=== PATIENT | female | born 1945 | race Two or more races ===

== ENCOUNTER → 2016-12-25 | Outpatient (CLI) | payer OTHER ==
[~2016-12-25] MED LIST: CHOL4POW4 PO; ESTR0.753 PO; GLIM2TAB33 PO; INSLANTI SC; LEVO100T8 PO; METF-312 PO; OXYB5TAB62 PO; RAMI10CA38 OR; TRIA37.561 PO
[2016-12-25 11:48] LABS: Basophils # (auto) 0 uL; Basophils % (auto) 0.3 % (0.0-2.0); Eosinophils # (auto) 0.2 uL; Eosinophils % (auto) 2.2 % (0.0-7.0); Hematocrit 43.1 % (36.0-46.0); Hemoglobin 14.2 g/dL (12.2-16.2); Lymphocytes # (auto) 2.2 uL; Lymphocytes % (auto) 28.8 % (10.0-50.0); Mean Corpuscular Hemoglobin 30.8 pg (28.0-32.0); Mean Corpuscular Hgb Conc. 32.9 g/dL (32.0-36.0); Mean Corpuscular Volume 93.7 fL (80.0-100.0); Mean Platelet Volume 7.9 fL (7.4-10.4); Monocytes # (auto) 0.7 uL; Monocytes % (auto) 9.7 % (0.0-12.0); Neutrophils # (auto) 4.5 uL; Platelet Count (auto) 301 10^3/uL (140-450); Red Cell Distribution Width 15.4 % (11.6-16.0); White Blood Cell 7.6 10^3/uL (4.4-10.8)
[2016-12-25 11:51] LABS: Urine Bilirubin Negative (Negative); Urine Blood Negative /uL (Negative); Urine Color Yellow (Yellow); Urine Glucose Normal (Normal); Urine Ketone Negative (Negative); Urine Nitrite Negative (Negative); Urine RBC <1 /hpf (0 - 4); Urine Urobilinogen Normal (Negative)
[2016-12-25 12:04] LABS: Albumin 3.9 g/dL (3.4-5.0); BUN/Creatinine Ratio 30.4; Calcium 9.6 mg/dL (8.5-10.1); Phosphorus 4.1 mg/dL (2.5-4.90); Potassium 4.2 mmol/L (3.5-5.1); Uric Acid 7.5 mg/dL (2.6-6.0)
[2016-12-25 12:08] LABS: Urine Protein/Creatinine Ratio 0.64
== END | disposition home or self-care (01) ==
LOC: LAB 11:17
PROVIDERS: ATTEND Internal Medicine
DX: N18.3 Chronic kidney disease, stage 3 (moderate) (principal); D63.1 Anemia in chronic kidney disease; E21.3 Hyperparathyroidism, unspecified; E78.5 Hyperlipidemia, unspecified; M10.9 Gout, unspecified; E55.9 Vitamin D deficiency, unspecified; E13.22 Other specified diabetes mellitus with diabetic chronic kidney disease
CPT/HCPCS: 36415; 80069; 81001; 82306; 82570; 83036; 83970; 84156; 84550; 85025

== ENCOUNTER → 2017-02-28 | Outpatient (CLI) | payer OTHER ==
[2017-02-28 14:04] LABS: Basophils # (auto) 0 uL; Basophils % (auto) 0.4 % (0.0-2.0); Eosinophils # (auto) 0.4 uL; Eosinophils % (auto) 4.8 % (0.0-7.0); Lymphocytes # (auto) 2.5 uL; Mean Corpuscular Hemoglobin 31.4 pg (28.0-32.0); Mean Corpuscular Hgb Conc. 33.3 g/dL (32.0-36.0); Mean Corpuscular Volume 94.2 fL (80.0-100.0); Mean Platelet Volume 7.5 fL (7.4-10.4); Monocytes # (auto) 0.7 uL; Monocytes % (auto) 8.2 % (0.0-12.0); Neutrophils # (auto) 4.9 uL; Neutrophils % (auto) 57.6 % (37.0-80.0); Platelet Count (auto) 325 10^3/uL (140-450); White Blood Cell 8.5 10^3/uL (4.4-10.8)
[2017-02-28 14:27] LABS: Albumin 3.8 g/dL (3.4-5.0); BUN/Creatinine Ratio 29.5; Bilirubin, Total 0.3 mg/dL (0.2-1.0); Potassium 3.9 mmol/L (3.5-5.1); Total Protein 8.4 g/dL (6.4-8.2)
== END | disposition home or self-care (01) ==
LOC: LAB 13:50
PROVIDERS: ATTEND Internal Medicine
DX: C43.9 Malignant melanoma of skin, unspecified (principal)
CPT/HCPCS: 36415; 80053; 83615; 85025

== ENCOUNTER → 2017-05-07 | Outpatient (CLI) | payer OTHER ==
[~2017-05-07] MED LIST changes: -METF-312 PO; +METF-370 PO
[2017-05-07 07:16] LABS: Basophils # (auto) 0 uL; Basophils % (auto) 0.3 % (0.0-2.0); CONDITION Y; Eosinophils # (auto) 0.2 uL; Eosinophils % (auto) 3.1 % (0.0-7.0); Hematocrit 42.4 % (36.0-46.0); Hemoglobin 14.2 g/dL (12.2-16.2); Lymphocytes # (auto) 2.1 uL; Lymphocytes % (auto) 28.3 % (10.0-50.0); Mean Corpuscular Hemoglobin 31.2 pg (28.0-32.0); Mean Corpuscular Hgb Conc. 33.4 g/dL (32.0-36.0); Mean Corpuscular Volume 93.4 fL (80.0-100.0); Mean Platelet Volume 7.6 fL (7.4-10.4); Monocytes # (auto) 0.6 uL; Monocytes % (auto) 8.5 % (0.0-12.0); Neutrophils # (auto) 4.5 uL; Neutrophils % (auto) 59.8 % (37.0-80.0); Platelet Count (auto) 343 10^3/uL (140-450); White Blood Cell 7.6 10^3/uL (4.4-10.8)
[2017-05-07 07:40] LABS: Albumin 3.8 g/dL (3.4-5.0); BUN/Creatinine Ratio 25.7; Bilirubin, Total 0.3 mg/dL (0.2-1.0); Calcium 9.5 mg/dL (8.5-10.1); Total Protein 8.7 g/dL (6.4-8.2)
== END | disposition home or self-care (01) ==
LOC: LAB 06:24
PROVIDERS: ATTEND Internal Medicine
DX: E11.9 Type 2 diabetes mellitus without complications (principal); E78.00 Pure hypercholesterolemia, unspecified
CPT/HCPCS: 36415; 80053; 80061; 83036; 84443; 85025

== ENCOUNTER → 2017-07-11 | Outpatient (CLI) | payer OTHER ==
[2017-07-11 14:24] LABS: Basophils # (auto) 0.1 uL; Basophils % (auto) 0.7 % (0.0-2.0); Eosinophils # (auto) 0.1 uL; Eosinophils % (auto) 1.6 % (0.0-7.0); Hemoglobin 14.1 g/dL (12.2-16.2); Lymphocytes # (auto) 2.2 uL; Lymphocytes % (auto) 27.3 % (10.0-50.0); Mean Corpuscular Hemoglobin 31.2 pg (28.0-32.0); Mean Corpuscular Hgb Conc. 33.5 g/dL (32.0-36.0); Mean Platelet Volume 7.4 fL (6.9-10.8); Monocytes # (auto) 0.8 uL; Monocytes % (auto) 10.1 % (0.0-12.0); Neutrophils # (auto) 4.9 uL; Neutrophils % (auto) 60.3 % (37.0-80.0); Platelet Count (auto) 296 10^3/uL (140-450); Red Cell Distribution Width 15.1 % (11.8-14.3); White Blood Cell 8.1 10^3/uL (4.4-10.8)
[2017-07-11 14:28] LABS: Urine Bilirubin Negative (Negative); Urine Blood Negative /uL (Negative); Urine Color Yellow (Yellow); Urine Glucose Normal (Normal); Urine Ketone Negative (Negative); Urine Nitrite POSITIVE (Negative); Urine RBC 1 /hpf (0 - 4); Urine Squamous Epithelial Cell FEW /hpf (<5); Urine Urobilinogen Normal (Negative)
[2017-07-11 14:52] LABS: Albumin 3.8 g/dL (3.4-5.0); BUN/Creatinine Ratio 28.6; Calcium 9.4 mg/dL (8.5-10.1); Phosphorus 3.8 mg/dL (2.5-4.90); Potassium 3.8 mmol/L (3.5-5.1); Uric Acid 8.4 mg/dL (2.6-6.0)
[2017-07-11 14:54] LABS: Urine Protein/Creatinine Ratio 0.27
== END | disposition home or self-care (01) ==
LOC: LAB 13:53
PROVIDERS: ATTEND Internal Medicine Cardiovascular Disease
DX: I48.91 Unspecified atrial fibrillation (principal); I11.9 Hypertensive heart disease without heart failure; Z79.899 Other long term (current) drug therapy
CPT/HCPCS: 36415; 80048; 80069; 81001; 82306; 82570; 83970; 84156; 84550; 85025

== ENCOUNTER → 2017-11-07 | Outpatient (CLI) | payer OTHER ==
[2017-11-07 14:44] LABS: BUN/Creatinine Ratio 27.2; Uric Acid 7.7 mg/dL (2.6-6.0)
== END | disposition home or self-care (01) ==
LOC: LAB 13:48
PROVIDERS: ATTEND Internal Medicine Cardiovascular Disease
DX: I10 Essential (primary) hypertension (principal); E10.9 Type 1 diabetes mellitus without complications; E03.9 Hypothyroidism, unspecified; I48.91 Unspecified atrial fibrillation
CPT/HCPCS: 36415; 80048; 83880; 84550

== ENCOUNTER → 2018-01-11 | Outpatient (CLI) | payer OTHER ==
[2018-01-11 07:29] LABS: Basophils # (auto) 0 uL; Basophils % (auto) 0.7 % (0.0-2.0); Eosinophils # (auto) 0.2 uL; Hematocrit 38.8 % (36.0-46.0); Hemoglobin 12.1 g/dL (12.2-16.2); Lymphocytes # (auto) 1.3 uL; Lymphocytes % (auto) 25.9 % (10.0-50.0); Mean Corpuscular Hemoglobin 27.8 pg (28.0-32.0); Mean Corpuscular Hgb Conc. 31.3 g/dL (32.0-36.0); Mean Corpuscular Volume 88.6 fL (80.0-100.0); Monocytes # (auto) 0.5 uL; Monocytes % (auto) 10.5 % (0.0-12.0); Neutrophils # (auto) 3.1 uL; Neutrophils % (auto) 59.9 % (37.0-80.0); Nucleated Red Blood Cells % 0.1 %; Platelet Count (auto) 310 10^3/uL (140-450); Red Blood Cells 4.37 10^6/uL (4.0-5.20); Red Cell Distribution Width 17.4 % (11.8-14.3); White Blood Cell 5.2 10^3/uL (4.4-10.8)
[2018-01-11 07:34] LABS: Urine Bacteria FEW /hpf (None Seen); Urine Blood Negative /uL (Negative); Urine Specific Gravity 1.012 (1.001-1.035); Urine WBC 10 /hpf (0 - 5)
[2018-01-11 08:18] LABS: Alanine Aminotransferase 12 U/L (13-56); Albumin 3.7 g/dL (3.4-5.0); Alkaline Phosphatase 66 U/L (45-117); Aspartate Aminotransferase 14 U/L (15-37); Bilirubin, Direct < 0.1 mg/dL (0-0.2); Bilirubin, Total 0.3 mg/dL (0.2-1.0); Cholesterol 160 mg/dL (< 200); HDL Cholesterol 42 mg/dL (40-59); LDL Cholesterol 101 mg/dL (< 100); Total Protein 8.5 g/dL (6.4-8.2); Triglycerides 168 mg/dL (< 150); Uric Acid 7.7 mg/dL (2.6-6.0)
[2018-01-11 08:27] LABS: Protein, Urine 39.6 mg/dL (0.0-11.9)
== END | disposition home or self-care (01) ==
LOC: LAB 07:05
PROVIDERS: ATTEND Internal Medicine
DX: I12.9 Hypertensive chronic kidney disease with stage 1 through stage 4 chronic kidney disease, or unspecified chronic kidney disease (principal); E10.22 Type 1 diabetes mellitus with diabetic chronic kidney disease; N18.3 Chronic kidney disease, stage 3 (moderate); D63.1 Anemia in chronic kidney disease; E21.3 Hyperparathyroidism, unspecified; E78.5 Hyperlipidemia, unspecified; M10.9 Gout, unspecified; R80.9 Proteinuria, unspecified; E55.9 Vitamin D deficiency, unspecified; E78.00 Pure hypercholesterolemia, unspecified; E03.9 Hypothyroidism, unspecified; Z79.899 Other long term (current) drug therapy
CPT/HCPCS: 36415; 80061; 80076; 81001; 82306; 82570; 83970; 84156; 84550; 85025

== ENCOUNTER → 2018-02-25 | Outpatient (CLI) | payer OTHER ==
[2018-02-25 11:47] LABS: BUN/Creatinine Ratio 24.5; Calcium 9.3 mg/dL (8.5-10.1); Potassium 4.5 mmol/L (3.5-5.1)
== END | disposition home or self-care (01) ==
LOC: LAB 10:18
PROVIDERS: ATTEND Urology
DX: C64.2 Malignant neoplasm of left kidney, except renal pelvis (principal); I12.9 Hypertensive chronic kidney disease with stage 1 through stage 4 chronic kidney disease, or unspecified chronic kidney disease; E11.22 Type 2 diabetes mellitus with diabetic chronic kidney disease; N18.3 Chronic kidney disease, stage 3 (moderate); E78.5 Hyperlipidemia, unspecified; E78.00 Pure hypercholesterolemia, unspecified; Z79.899 Other long term (current) drug therapy
CPT/HCPCS: 36415; 80048

== ENCOUNTER → 2018-03-19 | Outpatient (CLI) | payer OTHER | END | disposition home or self-care (01) | LOC: XYW 11:28 | PROVIDERS: ATTEND Internal Medicine Cardiovascular Disease | DX: I42.0 Dilated cardiomyopathy (principal); I13.0 Hypertensive heart and chronic kidney disease with heart failure and stage 1 through stage 4 chronic kidney disease, or unspecified chronic kidney disease; E11.22 Type 2 diabetes mellitus with diabetic chronic kidney disease; I50.22 Chronic systolic (congestive) heart failure; N18.3 Chronic kidney disease, stage 3 (moderate); E78.5 Hyperlipidemia, unspecified; E78.00 Pure hypercholesterolemia, unspecified; E03.9 Hypothyroidism, unspecified; Z79.899 Other long term (current) drug therapy | CPT/HCPCS: 93306 ==

== ENCOUNTER → 2018-03-22 | Outpatient (CLI) | payer OTHER ==
[2018-03-22 10:13] LABS: Basophils # (auto) 0 uL; Eosinophils # (auto) 0.1 uL; Hemoglobin 12.4 g/dL (12.2-16.2); Lymphocytes # (auto) 1.7 uL; Mean Corpuscular Hemoglobin 26.8 pg (28.0-32.0); Neutrophils # (auto) 2.7 uL; Neutrophils % (auto) 52.5 % (37.0-80.0)
[2018-03-22 10:14] LABS: Basophils % (auto) 0.7 % (0.0-2.0); Eosinophils % (auto) 2.7 % (0.0-7.0); Hematocrit 39.2 % (36.0-46.0); Lymphocytes % (auto) 33.6 % (10.0-50.0); Mean Corpuscular Hgb Conc. 31.7 g/dL (32.0-36.0); Mean Corpuscular Volume 84.6 fL (80.0-100.0); Monocytes # (auto) 0.5 uL; Monocytes % (auto) 10.5 % (0.0-12.0); Nucleated Red Blood Cells % 0.1 %; Platelet Count (auto) 264 10^3/uL (140-450); Red Blood Cells 4.63 10^6/uL (4.0-5.20); Red Cell Distribution Width 19.6 % (11.8-14.3); White Blood Cell 5.2 10^3/uL (4.4-10.8)
[2018-03-22 10:53] LABS: Albumin 3.8 g/dL (3.4-5.0); BUN/Creatinine Ratio 24.4; Bilirubin, Total 0.3 mg/dL (0.2-1.0); Potassium 4.6 mmol/L (3.5-5.1); Total Protein 8.4 g/dL (6.4-8.2)
== END | disposition home or self-care (01) ==
LOC: LAB 09:57
PROVIDERS: ATTEND Internal Medicine
DX: C64.2 Malignant neoplasm of left kidney, except renal pelvis (principal); E03.9 Hypothyroidism, unspecified; E78.5 Hyperlipidemia, unspecified; I12.9 Hypertensive chronic kidney disease with stage 1 through stage 4 chronic kidney disease, or unspecified chronic kidney disease; N18.3 Chronic kidney disease, stage 3 (moderate); Z85.820 Personal history of malignant melanoma of skin
CPT/HCPCS: 36415; 80053; 83615; 85025

== ENCOUNTER 2018-05-07 09:50 | Inpatient (IN) | payer OTHER ==
[~2018-05-07] VITALS: Ht 157.5 cm; Wt 76.9 kg
[~2018-05-07 09:50] MED LIST changes: +APIX2.5T PO; -CHOL4POW4 PO; +CLON0.2D6 TD; -ESTR0.753 PO; +FURO40TA4 PO; -GLIM2TAB33 PO; +OMEP20TA PO; -RAMI10CA38 OR; -TRIA37.561 PO
[2018-05-07 12:08] LABS: Basophils # (auto) 0 uL; Basophils % (auto) 0.4 % (0.0-2.0); Eosinophils # (auto) 0.1 uL; Hematocrit 37.7 % (36.0-46.0); Hemoglobin 12.1 g/dL (12.2-16.2); Lymphocytes # (auto) 1.5 uL; Lymphocytes % (auto) 21.1 % (10.0-50.0); Mean Corpuscular Hemoglobin 27.8 pg (28.0-32.0); Mean Corpuscular Hgb Conc. 32.2 g/dL (32.0-36.0); Mean Corpuscular Volume 86.4 fL (80.0-100.0); Monocytes # (auto) 0.6 uL; Neutrophils # (auto) 4.9 uL; Neutrophils % (auto) 69.5 % (37.0-80.0); Platelet Count (auto) 304 10^3/uL (140-450); Red Blood Cells 4.36 10^6/uL (4.0-5.20); White Blood Cell 7.1 10^3/uL (4.4-10.8)
[2018-05-07 12:43] LABS: Albumin 3.6 g/dL (3.4-5.0); BUN/Creatinine Ratio 21.9; Calcium 8.4 mg/dL (8.5-10.1); Potassium 3.9 mmol/L (3.5-5.1)
[2018-05-07 12:46] LABS: Bilirubin, Total 0.4 mg/dL (0.2-1.0); Total Protein 8.5 g/dL (6.4-8.2)
[2018-05-07 13:17] LABS: INR 1.03 (0.9-1.15); Partial Thromboplastin Time 33.1 sec (23.78-33.04)
[2018-05-07] MEDS ORDERED: ONDANSETRON HCL 4 MG/2 ML VIAL IV PRN (15:00)
[2018-05-07] MEDS ORDERED: cloNIDine 0.2 mg/24hr 7DAY PATCH TD SCH (15:00)
[2018-05-07] MEDS ORDERED: DEXTROSE (50%) 50ML SYRG IV PRN (15:00)
[2018-05-07] MEDS ORDERED: HYDROcodone-ACET 5/325MG TAB PO PRN (15:00)
[2018-05-07] MEDS ORDERED: cloNIDine HCL 0.1 MG TAB PO PRN (15:00)
[2018-05-07] MEDS ORDERED: DOCUSATE SOD 100 MG CAP PO PRN (15:00)
[2018-05-07] MEDS ORDERED: MORPHINE SULF INJ 2 MG/ML SYRINGE 1ML IV PRN ×2 (15:00)
[2018-05-07] MEDS ORDERED: TEMAZEPAM 15 MG CAP PO PRN (15:00)
[2018-05-07] MEDS ORDERED: ACETAMINOPHEN 325 MG TAB PO PRN (15:00)
[2018-05-07] MEDS ORDERED: NITROGLYCERIN 0.4 MG SL TAB SL PRN (15:00)
[2018-05-07] MEDS ORDERED: FAMOTIDINE 20 MG TAB PO SCH (15:10)
[2018-05-07 15:22] LABS: Urine Bacteria NONE SEEN /hpf (None Seen); Urine Blood Negative /uL (Negative); Urine Mucus FEW (None Seen); Urine Specific Gravity 1.007 (1.001-1.035); Urine WBC <1 /hpf (0 - 5)
[2018-05-07] MEDS: ACCU-CHEK COMFORT CURVE STRIP VI SCH ×2 (16:55→21:23)
[2018-05-07] MEDS: InsuLIN REG 1unit/0.01ml Soln (100units/ml) SC SCH ×2 (16:55→21:24)
[2018-05-07] MEDS: SODIUM CHLOR 0.9% PF (SALINE LOCK) 10ML VIAL/SYR IV SCH (21:24)
[2018-05-07] MEDS: OXYBUTYNIN CHL 5 MG TAB PO SCH (21:31)
[2018-05-07] MEDS: PANTOPRAZOLE 40 MG TAB PO SCH (21:31)
[2018-05-07] MEDS: FLUTICASONE PROP NASAL SPR 0.05 % (50MCG) 16GM EACHNOSTRI SCH (21:32)
[2018-05-07] MEDS: CARVEDILOL 12.5 MG TAB PO SCH (21:32)
[2018-05-07 22:00] VITALS: BP 148/67
[2018-05-07] MEDS ORDERED: INSULIN LANTUS (GLARGINE) 1 /0.01ml (100units/ml) SC SCH (22:00)
[2018-05-07] MEDS: LATANOPROST 0.005 % OPTH(EYE) SOL 2.5ML EACHEYE SCH (22:36)
[2018-05-07 22:52] VITALS: BP 148/67
[2018-05-07] MEDS ORDERED: GLIM2TAB33 PO (23:26)
[2018-05-07] MEDS ORDERED: CAR125T OR (23:26)
[2018-05-07] MEDS ORDERED: LOSA100T27 PO (23:26)
[2018-05-08 05:00] VITALS: BP 158/70
[2018-05-08] MEDS: LEVOTHYROXINE SODIUM 100 MCG TAB PO SCH (06:34)
[2018-05-08] MEDS: GLIMEPIRIDE 2 MG TAB PO SCH ×2 (06:34→06:37)
[2018-05-08] MEDS: SODIUM CHLOR 0.9% PF (SALINE LOCK) 10ML VIAL/SYR IV SCH ×3 (06:34→22:18)
[2018-05-08] MEDS: InsuLIN REG 1unit/0.01ml Soln (100units/ml) SC SCH ×4 (06:35→22:00)
[2018-05-08] MEDS: ACCU-CHEK COMFORT CURVE STRIP VI SCH ×4 (06:35→22:17)
[2018-05-08 07:56] LABS: Albumin 3.7 g/dL (3.4-5.0); BUN/Creatinine Ratio 17.4; Bilirubin, Total 0.5 mg/dL (0.2-1.0); Calcium 8.9 mg/dL (8.5-10.1); Potassium 4.4 mmol/L (3.5-5.1); Total Protein 8.6 g/dL (6.4-8.2)
[2018-05-08 08:00] VITALS: BP 158/74
[2018-05-08 08:02] LABS: Basophils # (auto) 0 uL; Basophils % (auto) 0.6 % (0.0-2.0); Eosinophils # (auto) 0.2 uL; Eosinophils % (auto) 2.4 % (0.0-7.0); Hematocrit 37.7 % (36.0-46.0); Hemoglobin 12.1 g/dL (12.2-16.2); Lymphocytes # (auto) 1.5 uL; Lymphocytes % (auto) 23.7 % (10.0-50.0); Mean Corpuscular Hemoglobin 27.7 pg (28.0-32.0); Mean Corpuscular Hgb Conc. 32.2 g/dL (32.0-36.0); Monocytes # (auto) 0.6 uL; Monocytes % (auto) 9.9 % (0.0-12.0); Neutrophils # (auto) 4.1 uL; Neutrophils % (auto) 63.4 % (37.0-80.0); Nucleated Red Blood Cells % 0.1 %; Platelet Count (auto) 315 10^3/uL (140-450); Red Blood Cells 4.39 10^6/uL (4.0-5.20); White Blood Cell 6.5 10^3/uL (4.4-10.8)
[2018-05-08 08:12] LABS: Red Cell Distribution Width 21.2 % (11.8-14.3)
[2018-05-08 09:00] VITALS: BP 158/74
[2018-05-08] MEDS ORDERED: HCTZ 25 MG TAB PO SCH (10:00)
[2018-05-08] MEDS: FLUTICASONE PROP NASAL SPR 0.05 % (50MCG) 16GM EACHNOSTRI SCH ×2 (10:00→22:17)
[2018-05-08] MEDS ORDERED: PANTOPRAZOLE 40 MG TAB PO SCH (10:00)
[2018-05-08] MEDS ORDERED: FUROSEMIDE 40 MG TAB PO SCH (10:00)
[2018-05-08] MEDS: OXYBUTYNIN CHL 5 MG TAB PO SCH ×2 (10:24→22:16)
[2018-05-08] MEDS: LOSARTAN POTASSIUM 50 MG TAB PO SCH (10:24)
[2018-05-08] MEDS: MULTIPLE VITAMIN TAB PO SCH (10:25)
[2018-05-08] MEDS: PANTOPRAZOLE 40 MG TAB PO SCH ×2 (10:25→22:16)
[2018-05-08] MEDS: CARVEDILOL 12.5 MG TAB PO SCH ×2 (10:25→22:16)
[2018-05-08] MEDS ORDERED: cloNIDine HCL 0.1 MG TAB PO PRN (10:45)
[2018-05-08 13:00] VITALS: BP 156/72
[2018-05-08 17:00] VITALS: BP 160/70
[2018-05-08 22:00] VITALS: BP 160/88
[2018-05-08] MEDS: LATANOPROST 0.005 % OPTH(EYE) SOL 2.5ML EACHEYE SCH (22:17)
[2018-05-09 05:00] VITALS: BP 132/73
[2018-05-09] MEDS: InsuLIN REG 1unit/0.01ml Soln (100units/ml) SC SCH ×4 (06:24→22:17)
[2018-05-09] MEDS: SODIUM CHLOR 0.9% PF (SALINE LOCK) 10ML VIAL/SYR IV SCH ×3 (06:24→22:15)
[2018-05-09] MEDS: LEVOTHYROXINE SODIUM 100 MCG TAB PO SCH (06:25)
[2018-05-09] MEDS: ACCU-CHEK COMFORT CURVE STRIP VI SCH ×4 (06:25→22:17)
[2018-05-09 08:00] VITALS: BP 128/72
[2018-05-09 08:04] LABS: Basophils # (auto) 0 uL; Basophils % (auto) 0.5 % (0.0-2.0); Eosinophils # (auto) 0.1 uL; Eosinophils % (auto) 1.3 % (0.0-7.0); Hematocrit 38.4 % (36.0-46.0); Hemoglobin 12.5 g/dL (12.2-16.2); Lymphocytes # (auto) 1.4 uL; Lymphocytes % (auto) 22.1 % (10.0-50.0); Mean Corpuscular Hemoglobin 28.1 pg (28.0-32.0); Mean Corpuscular Hgb Conc. 32.6 g/dL (32.0-36.0); Mean Corpuscular Volume 86.4 fL (80.0-100.0); Monocytes # (auto) 0.6 uL; Monocytes % (auto) 9.4 % (0.0-12.0); Neutrophils # (auto) 4.1 uL; Neutrophils % (auto) 66.7 % (37.0-80.0); Nucleated Red Blood Cells % 0.1 %; Platelet Count (auto) 314 10^3/uL (140-450); Red Blood Cells 4.44 10^6/uL (4.0-5.20); White Blood Cell 6.2 10^3/uL (4.4-10.8)
[2018-05-09 08:06] LABS: Red Cell Distribution Width 20.8 % (11.8-14.3)
[2018-05-09 08:15] LABS: BUN/Creatinine Ratio 16.7; Calcium 8.9 mg/dL (8.5-10.1); Potassium 3.7 mmol/L (3.5-5.1)
[2018-05-09 09:00] VITALS: BP 128/72
[2018-05-09] MEDS: CARVEDILOL 12.5 MG TAB PO SCH ×2 (09:53→22:40)
[2018-05-09] MEDS: LOSARTAN POTASSIUM 50 MG TAB PO SCH (09:53)
[2018-05-09] MEDS: MULTIPLE VITAMIN TAB PO SCH (09:54)
[2018-05-09] MEDS: OXYBUTYNIN CHL 5 MG TAB PO SCH ×2 (09:54→22:16)
[2018-05-09] MEDS: PANTOPRAZOLE 40 MG TAB PO SCH ×2 (09:54→22:17)
[2018-05-09] MEDS: FLUTICASONE PROP NASAL SPR 0.05 % (50MCG) 16GM EACHNOSTRI SCH ×2 (09:56→22:00)
[2018-05-09] MEDS ORDERED: LOSA100T33 PO (10:12)
[2018-05-09] MEDS ORDERED: AMLO2.5T PO (10:12)
[2018-05-09] MEDS ORDERED: FURO40TA4 PO (10:12)
[2018-05-09] MEDS ORDERED: GOLYTELY 4L KIT PO ONE (12:00)
[2018-05-09 13:00] VITALS: BP 142/69
[2018-05-09 17:00] VITALS: BP 132/78
[2018-05-09 21:46] VITALS: BP 151/99
[2018-05-09] MEDS: LATANOPROST 0.005 % OPTH(EYE) SOL 2.5ML EACHEYE SCH (22:14)
[2018-05-10] MEDS ORDERED: GOLYTELY 4L KIT PO ONE (04:00)
[2018-05-10 04:50] VITALS: BP 162/79
[2018-05-10] MEDS: LEVOTHYROXINE SODIUM 100 MCG TAB PO SCH (05:34)
[2018-05-10] MEDS: InsuLIN REG 1unit/0.01ml Soln (100units/ml) SC SCH ×2 (05:34→11:30)
[2018-05-10] MEDS: ACCU-CHEK COMFORT CURVE STRIP VI SCH ×2 (05:43→11:30)
[2018-05-10] MEDS: SODIUM CHLOR 0.9% PF (SALINE LOCK) 10ML VIAL/SYR IV SCH ×2 (05:43→14:20)
[2018-05-10 07:22] VITALS: BP 139/65
[2018-05-10 07:26] LABS: INR 1.07 (0.9-1.15); Partial Thromboplastin Time 29.8 sec (23.78-33.04); Prothrombin Time 11.4 sec (9.27-12.13)
[2018-05-10] MEDS ORDERED: LIDOCAINE VISCOUS 2% 15ML UD ONE (08:18)
[2018-05-10] MEDS ORDERED: SODIUM CHLORIDE LOCK 10 ML ONE (08:18)
[2018-05-10] MEDS ORDERED: diphenhdrAMINE HCL 50 MG/1 ML VL ONE (08:19)
[2018-05-10] MEDS: CARVEDILOL 12.5 MG TAB PO SCH (09:45)
[2018-05-10] MEDS: FLUTICASONE PROP NASAL SPR 0.05 % (50MCG) 16GM EACHNOSTRI SCH (09:45)
[2018-05-10] MEDS: OXYBUTYNIN CHL 5 MG TAB PO SCH (09:46)
[2018-05-10] MEDS: LOSARTAN POTASSIUM 50 MG TAB PO SCH (09:46)
[2018-05-10] MEDS: MULTIPLE VITAMIN TAB PO SCH (09:46)
[2018-05-10] MEDS: PANTOPRAZOLE 40 MG TAB PO SCH (09:46)
[2018-05-10] MEDS: fentaNYL CITRATE 100 MCG/2 ML VL ONE ×3 (10:04→10:20)
[2018-05-10] MEDS: MIDAZOLAM HCL 5 MG/ML-1ML VIAL ONE ×3 (10:04→10:20)
[2018-05-10 13:18] VITALS: BP 128/60
[2018-05-10 13:25] VITALS: BP 128/60
[2018-05-10 16:33] VITALS: BP 132/60
[2018-05-20] MEDS ORDERED: PANT40TA2 PO (10:23)
[2018-05-20] MEDS ORDERED: LATA0.0015 EACHEYE (10:23)
== END 2018-05-10 16:40 | disposition home or self-care (01) | DRG 378 ==
LOC: ER 09:50 → TELE 09:51 → TELE-CENTR 21:52 → CENTRAL 05-10 00:01
PROVIDERS: ADMIT Internal Medicine; ATTEND Internal Medicine
PROC: 0DB68ZX Excision of Stomach, Via Natural or Artificial Opening Endoscopic, Diagnostic (ICD-10-PCS; principal; 2018-05-10 10:01)
PROC: 0DJD8ZZ Inspection of Lower Intestinal Tract, Via Natural or Artificial Opening Endoscopic (ICD-10-PCS; 2018-05-10 10:01)
DX: K57.31 Diverticulosis of large intestine without perforation or abscess with bleeding (principal); E87.1 Hypo-osmolality and hyponatremia; I48.1 Persistent atrial fibrillation; I48.92 Unspecified atrial flutter; D68.69 Other thrombophilia; I13.0 Hypertensive heart and chronic kidney disease with heart failure and stage 1 through stage 4 chronic kidney disease, or unspecified chronic kidney disease; I31.3 Pericardial effusion (noninflammatory); K29.71 Gastritis, unspecified, with bleeding; D17.79 Benign lipomatous neoplasm of other sites; E03.9 Hypothyroidism, unspecified; E11.22 Type 2 diabetes mellitus with diabetic chronic kidney disease; E66.9 Obesity, unspecified; N18.3 Chronic kidney disease, stage 3 (moderate); Z87.11 Personal history of peptic ulcer disease; Z85.3 Personal history of malignant neoplasm of breast; Z90.13 Acquired absence of bilateral breasts and nipples; Z90.49 Acquired absence of other specified parts of digestive tract; E83.51 Hypocalcemia; Z68.31 Body mass index [BMI] 31.0-31.9, adult; I50.9 Heart failure, unspecified; D63.8 Anemia in other chronic diseases classified elsewhere; Z79.4 Long term (current) use of insulin
CPT/HCPCS: 36415; 43239; 45378; 71045; 80048; 80053; 81001; 82962; 83036; 83880; 84443; 84484; 85025; 85610; 85730; 86850; 86870; 86900; 86901; 87081; 93005; J1815; J2250

== ENCOUNTER → 2018-05-15 | Outpatient (CLI) | payer OTHER ==
[~2018-05-15] MED LIST changes: +AMLO2.5T PO; +CAR125T OR; +GLIM2TAB33 PO; +LATA0.0015 EACHEYE; +LOSA100T33 PO; +PANT40TA2 PO
[2018-05-15 11:34] LABS: Basophils # (auto) 0 uL; Basophils % (auto) 0.5 % (0.0-2.0); Eosinophils # (auto) 0.1 uL; Eosinophils % (auto) 1.3 % (0.0-7.0); Hematocrit 34.1 % (36.0-46.0); Hemoglobin 10.9 g/dL (12.2-16.2); Lymphocytes # (auto) 1.2 uL; Lymphocytes % (auto) 18.1 % (10.0-50.0); Mean Corpuscular Hemoglobin 27.6 pg (28.0-32.0); Mean Corpuscular Hgb Conc. 32.1 g/dL (32.0-36.0); Mean Corpuscular Volume 86.1 fL (80.0-100.0); Monocytes # (auto) 0.6 uL; Monocytes % (auto) 9.2 % (0.0-12.0); Neutrophils # (auto) 4.6 uL; Neutrophils % (auto) 70.9 % (37.0-80.0); Nucleated Red Blood Cells % 0.1 %; Platelet Count (auto) 320 10^3/uL (140-450); Red Blood Cells 3.97 10^6/uL (4.0-5.20); White Blood Cell 6.5 10^3/uL (4.4-10.8)
[2018-05-15 11:35] LABS: Red Cell Distribution Width 20.6 % (11.8-14.3)
[2018-05-15 11:39] LABS: Urine Bacteria FEW /hpf (None Seen); Urine Blood Negative /uL (Negative); Urine Specific Gravity 1.006 (1.001-1.035); Urine WBC 1 /hpf (0 - 5)
[2018-05-15 11:42] LABS: Albumin 3.3 g/dL (3.4-5.0); BUN/Creatinine Ratio 18.5; Calcium 8.3 mg/dL (8.5-10.1); Phosphorus 3.3 mg/dL (2.5-4.90); Potassium 4.1 mmol/L (3.5-5.1); Uric Acid 7.5 mg/dL (2.6-6.0)
[2018-05-15 12:33] LABS: Protein, Urine 9.2 mg/dL (0.0-11.9)
== END | disposition home or self-care (01) ==
LOC: LAB 10:24
PROVIDERS: ATTEND Internal Medicine
DX: I12.9 Hypertensive chronic kidney disease with stage 1 through stage 4 chronic kidney disease, or unspecified chronic kidney disease (principal); E11.22 Type 2 diabetes mellitus with diabetic chronic kidney disease; N18.3 Chronic kidney disease, stage 3 (moderate); D63.1 Anemia in chronic kidney disease; M10.9 Gout, unspecified; R80.9 Proteinuria, unspecified
CPT/HCPCS: 36415; 80069; 81001; 82306; 82570; 83970; 84156; 84550; 85025

== ENCOUNTER 2018-05-23 08:37 | Inpatient (IN) | payer OTHER ==
[2018-05-20 12:14] LABS: Basophils # (auto) 0 uL; Basophils % (auto) 0.4 % (0.0-2.0); Eosinophils # (auto) 0 uL; Eosinophils % (auto) 0.4 % (0.0-7.0); Hematocrit 31.1 % (36.0-46.0); Hemoglobin 10.5 g/dL (12.2-16.2); Lymphocytes # (auto) 1.1 uL; Lymphocytes % (auto) 16.3 % (10.0-50.0); Mean Corpuscular Hemoglobin 28.8 pg (28.0-32.0); Mean Corpuscular Hgb Conc. 33.7 g/dL (32.0-36.0); Mean Corpuscular Volume 85.5 fL (80.0-100.0); Monocytes # (auto) 0.5 uL; Monocytes % (auto) 6.5 % (0.0-12.0); Neutrophils # (auto) 5.3 uL; Neutrophils % (auto) 76.4 % (37.0-80.0); Platelet Count (auto) 367 10^3/uL (140-450); Red Blood Cells 3.63 10^6/uL (4.0-5.20); White Blood Cell 6.9 10^3/uL (4.4-10.8)
[2018-05-20 12:15] LABS: Urine Bacteria FEW /hpf (None Seen); Urine Blood Negative /uL (Negative); Urine Specific Gravity 1.009 (1.001-1.035); Urine WBC 3 /hpf (0 - 5)
[2018-05-20 12:17] LABS: Red Cell Distribution Width 20.3 % (11.8-14.3)
[2018-05-20 12:27] LABS: INR 1.02 (0.9-1.15); Partial Thromboplastin Time 34.2 sec (23.78-33.04); Prothrombin Time 10.9 sec (9.27-12.13)
[2018-05-20 12:33] LABS: Albumin 3.4 g/dL (3.4-5.0); BUN/Creatinine Ratio 20.3; Bilirubin, Total 0.5 mg/dL (0.2-1.0); Calcium 8.8 mg/dL (8.5-10.1); Total Protein 8.2 g/dL (6.4-8.2)
[~2018-05-23] VITALS: Ht 154.9 cm; Wt 78.2 kg
[~2018-05-23 08:37] MED LIST changes: -AMLO2.5T PO; -FURO40TA4 PO
[2018-05-23] MEDS ORDERED: LABETALOL HCL 5 MG/ML 4ML SYRINGE IV PRN (10:15)
[2018-05-23] MEDS ORDERED: ePHEDrine SULFATE 50 MG/ML AMP IV PRN (10:15)
[2018-05-23] MEDS ORDERED: NALOXONE HCL 0.4 MG/ML VIAL IV PRN (10:15)
[2018-05-23] MEDS ORDERED: hydrALAZINE HCL 20 MG/ML VL IV PRN (10:15)
[2018-05-23] MEDS ORDERED: HYDROmorphone HCL 2 MG/ML VL IV PRN ×2 (10:15→11:00)
[2018-05-23] MEDS ORDERED: ONDANSETRON HCL 4 MG/2 ML VIAL IV ONE (10:15)
[2018-05-23] MEDS ORDERED: ROCURONIUM 10MG/ML 10ML VIAL IV ONE (10:17)
[2018-05-23] MEDS ORDERED: DEXAMETHASONE SOD PHOS 10MG/1ML VIAL INJ ONE (10:17)
[2018-05-23] MEDS ORDERED: ONDANSETRON HCL 4 MG/2 ML VIAL ONE (10:17)
[2018-05-23] MEDS ORDERED: METOCLOPRAMIDE HCL 5MG/ml INJ 2ml VIAL ONE (10:17)
[2018-05-23] MEDS ORDERED: diphenhdrAMINE HCL 50 MG/1 ML VL ONE (10:17)
[2018-05-23] MEDS ORDERED: NEOSTIGMINE 1 MG/ML INJ (10mg/10ML VIAL) ONE (10:17)
[2018-05-23] MEDS ORDERED: GLYCOPYRROLATE 0.2 MG/ML 1ML VIAL ONE (10:17)
[2018-05-23] MEDS ORDERED: ePHEDrine SULFATE 50 MG/ML AMP ONE (10:17)
[2018-05-23] MEDS ORDERED: fentaNYL CITRATE 5 ML ONE (10:17)
[2018-05-23] MEDS ORDERED: PROPOFOL 10 MG/ML 20 ML IV ONE (10:17)
[2018-05-23] MEDS ORDERED: SODIUM CHLORIDE LOCK 10 ML ONE (10:17)
[2018-05-23] MEDS ORDERED: MIDAZOLAM HCL 1MG/1ML-2 ML VIAL ONE (10:17)
[2018-05-23] MEDS ORDERED: LIDOCAINE 1% (LOCAL ANESTH.) PF 5ml SDV ONE (10:18)
[2018-05-23] MEDS ORDERED: BUPIVACAINE W/ EPINEPH 0.25% INJ 50ML MDV ONE (10:19)
[2018-05-23] MEDS ORDERED: LIDOCAINE 2% (LOCAL ANESTH.) PF 5ml SDV ONE (10:29)
[2018-05-23] MEDS ORDERED: ceFOXitin 2GM/100ML 100 ML IV ONE (10:29)
[2018-05-23] MEDS: CEFOXITIN SODIUM 1 GM in D5W 5% 50 ML IV SCH ×2 (11:00→18:14)
[2018-05-23] MEDS ORDERED: DEXTROSE (50%) 50ML SYRG IV PRN (11:00)
[2018-05-23] MEDS ORDERED: ONDANSETRON HCL 4 MG/2 ML VIAL IV PRN (11:00)
[2018-05-23] MEDS ORDERED: hydrALAZINE HCL 20 MG/ML VL ONE (11:25)
[2018-05-23] MEDS ORDERED: fentaNYL CITRATE 100 MCG/2 ML VL ONE (11:48)
[2018-05-23] MEDS: InsuLIN REG 1unit/0.01ml Soln (100units/ml) SC SCH ×3 (12:35→22:17)
[2018-05-23] MEDS: ACCU-CHEK COMFORT CURVE STRIP VI SCH ×3 (12:35→22:18)
[2018-05-23] MEDS: SOD CHL 0.45% 1,000 ML IV SCH ×2 (14:00→18:14)
[2018-05-23] MEDS ORDERED: cloNIDine 0.2 mg/24hr 7DAY PATCH TD SCH (14:00)
[2018-05-23 16:45] VITALS: BP 150/79
[2018-05-23] MEDS ORDERED: LATANOPROST EACHEYE SCH (18:00)
[2018-05-23] MEDS ORDERED: LATANOPROST 0.005 % OPTH(EYE) SOL 2.5ML EACHEYE SCH ×2 (18:00→22:00)
[2018-05-23 22:00] VITALS: BP 172/74
[2018-05-23] MEDS ORDERED: metFORMIN HYDROCHLORIDE 500 MG TAB PO SCH (22:00)
[2018-05-23] MEDS: CARVEDILOL 12.5 MG TAB PO SCH (22:16)
[2018-05-23] MEDS: INSULIN LANTUS (GLARGINE) 1 /0.01ml (100units/ml) SC SCH (22:17)
[2018-05-24] MEDS: SOD CHL 0.45% 1,000 ML IV SCH ×3 (03:12→22:31)
[2018-05-24] MEDS: CEFOXITIN SODIUM 1 GM in D5W 5% 50 ML IV SCH ×3 (03:16→18:10)
[2018-05-24 06:19] VITALS: BP 174/95
[2018-05-24] MEDS: ACCU-CHEK COMFORT CURVE STRIP VI SCH ×4 (06:43→22:34)
[2018-05-24] MEDS: InsuLIN REG 1unit/0.01ml Soln (100units/ml) SC SCH ×4 (06:43→22:33)
[2018-05-24] MEDS: LABETALOL HCL 5 MG/ML ML 20ML VIAL IV PRN (06:44)
[2018-05-24 08:00] VITALS: BP 135/72
[2018-05-24 08:02] LABS: Basophils # (auto) 0 uL; Basophils % (auto) 0.2 % (0.0-2.0); Eosinophils # (auto) 0 uL; Hematocrit 33.5 % (36.0-46.0); Hemoglobin 10.9 g/dL (12.2-16.2); Lymphocytes # (auto) 0.6 uL; Lymphocytes % (auto) 6.6 % (10.0-50.0); Mean Corpuscular Hemoglobin 28.3 pg (28.0-32.0); Mean Corpuscular Hgb Conc. 32.7 g/dL (32.0-36.0); Mean Corpuscular Volume 86.7 fL (80.0-100.0); Monocytes # (auto) 0.7 uL; Monocytes % (auto) 7.2 % (0.0-12.0); Neutrophils # (auto) 7.9 uL; Platelet Count (auto) 396 10^3/uL (140-450); Red Blood Cells 3.86 10^6/uL (4.0-5.20); White Blood Cell 9.2 10^3/uL (4.4-10.8)
[2018-05-24 08:10] LABS: Red Cell Distribution Width 20.2 % (11.8-14.3)
[2018-05-24 08:13] LABS: BUN/Creatinine Ratio 11.2; Calcium 8.3 mg/dL (8.5-10.1); Potassium 4.6 mmol/L (3.5-5.1)
[2018-05-24 08:49] VITALS: BP 135/72
[2018-05-24] MEDS ORDERED: PATIENTS OWN MEDICATION (Omeprazole (Gnp Omeprazole) 20 MG) PO SCH (10:00)
[2018-05-24] MEDS ORDERED: GLIMEPIRIDE 2 MG PO SCH (10:00)
[2018-05-24] MEDS ORDERED: HCTZ 25 MG TAB PO SCH (10:00)
[2018-05-24] MEDS ORDERED: PATIENTS OWN MEDICATION (Losartan Potassium & Hydrochlo (Losartan Potassium/Hydroc) 1 TAB) PO SCH (10:00)
[2018-05-24] MEDS ORDERED: LOSARTAN POTASSIUM 50 MG TAB PO SCH (10:00)
[2018-05-24] MEDS ORDERED: GLIMEPIRIDE 2 MG TAB PO SCH (10:00)
[2018-05-24] MEDS: LEVOTHYROXINE SODIUM 100 MCG TAB PO SCH (10:43)
[2018-05-24] MEDS: CARVEDILOL 12.5 MG TAB PO SCH ×2 (10:44→22:32)
[2018-05-24] MEDS ORDERED: HYDROmorphone HCL 2 MG/ML VL IV PRN (10:45)
[2018-05-24] MEDS: PANTOPRAZOLE 40 MG TAB PO SCH (11:09)
[2018-05-24 13:00] VITALS: BP 129/56
[2018-05-24 17:00] VITALS: BP 168/72
[2018-05-24 22:00] VITALS: BP 175/72
[2018-05-24] MEDS: LATANOPROST 0.005 % OPTH(EYE) SOL 2.5ML EACHEYE SCH (22:31)
[2018-05-24] MEDS: INSULIN LANTUS (GLARGINE) 1 /0.01ml (100units/ml) SC SCH (22:33)
[2018-05-24] MEDS: diphenhdrAMINE HCL 50 MG/1 ML VL IV PRN (22:34)
[2018-05-24] MEDS ORDERED: CEFOXITIN SODIUM 1 GM in D5W 5% 50 ML IV SCH (23:30)
[2018-05-24] MEDS ORDERED: CEFOXITIN SODIUM 1 GM in D5W 5% 50 ML IV ONE (23:30)
[2018-05-25] MEDS: ACETAMINOPHEN/CODEINE#3 (300/30mg) TAB PO PRN ×2 (04:24→15:29)
[2018-05-25 05:00] VITALS: BP 151/77
[2018-05-25] MEDS: LABETALOL HCL 5 MG/ML ML 20ML VIAL IV PRN (05:17)
[2018-05-25] MEDS: CEFOXITIN SODIUM 1 GM in D5W 5% 50 ML IV SCH ×3 (06:34→22:37)
[2018-05-25] MEDS: SOD CHL 0.45% 1,000 ML IV SCH (06:34)
[2018-05-25] MEDS: InsuLIN REG 1unit/0.01ml Soln (100units/ml) SC SCH ×4 (06:35→22:36)
[2018-05-25] MEDS: ACCU-CHEK COMFORT CURVE STRIP VI SCH ×4 (06:36→22:36)
[2018-05-25 08:00] VITALS: BP 143/72
[2018-05-25 08:01] LABS: Basophils # (auto) 0 uL; Basophils % (auto) 0.2 % (0.0-2.0); Eosinophils # (auto) 0 uL; Hematocrit 29.3 % (36.0-46.0); Hemoglobin 9.5 g/dL (12.2-16.2); Lymphocytes % (auto) 10.5 % (10.0-50.0); Mean Corpuscular Hgb Conc. 32.5 g/dL (32.0-36.0); Monocytes # (auto) 0.7 uL; Monocytes % (auto) 7.3 % (0.0-12.0); Neutrophils # (auto) 8.1 uL; Platelet Count (auto) 351 10^3/uL (140-450); White Blood Cell 9.9 10^3/uL (4.4-10.8)
[2018-05-25 08:13] LABS: Red Cell Distribution Width 20.1 % (11.8-14.3)
[2018-05-25 08:17] LABS: BUN/Creatinine Ratio 11.5; Calcium 8.1 mg/dL (8.5-10.1); Potassium 4.4 mmol/L (3.5-5.1)
[2018-05-25 08:26] VITALS: BP 137/78
[2018-05-25] MEDS: PANTOPRAZOLE 40 MG TAB PO SCH (09:45)
[2018-05-25] MEDS: LEVOTHYROXINE SODIUM 100 MCG TAB PO SCH (09:45)
[2018-05-25] MEDS: CARVEDILOL 12.5 MG TAB PO SCH ×2 (09:46→22:25)
[2018-05-25] MEDS: SODIUM CHLORIDE 0.9% 1,000 ML IV SCH ×2 (10:44→17:43)
[2018-05-25 12:52] VITALS: BP 128/62
[2018-05-25 16:52] VITALS: BP 133/73
[2018-05-25 22:00] VITALS: BP 123/73
[2018-05-25] MEDS: INSULIN LANTUS (GLARGINE) 1 /0.01ml (100units/ml) SC SCH (22:00)
[2018-05-25] MEDS: LATANOPROST 0.005 % OPTH(EYE) SOL 2.5ML EACHEYE SCH (22:35)
[2018-05-26 05:00] VITALS: BP 125/61
[2018-05-26 05:58] LABS: Creatinine, Urine 40 mg/dL (30.0-125.0); Sodium Urine 39 mmol/L (40-220)
[2018-05-26] MEDS: ACCU-CHEK COMFORT CURVE STRIP VI SCH ×3 (06:09→22:00)
[2018-05-26] MEDS: CEFOXITIN SODIUM 1 GM in D5W 5% 50 ML IV SCH ×3 (06:09→22:57)
[2018-05-26] MEDS: InsuLIN REG 1unit/0.01ml Soln (100units/ml) SC SCH ×3 (06:09→22:00)
[2018-05-26 07:40] LABS: Basophils # (auto) 0.1 uL; Eosinophils # (auto) 0 uL; Eosinophils % (auto) 0.6 % (0.0-7.0); Hematocrit 28.2 % (36.0-46.0); Hemoglobin 9.3 g/dL (12.2-16.2); Lymphocytes # (auto) 1.2 uL; Mean Corpuscular Hemoglobin 28.7 pg (28.0-32.0); Mean Corpuscular Hgb Conc. 33.1 g/dL (32.0-36.0); Mean Corpuscular Volume 86.8 fL (80.0-100.0); Monocytes # (auto) 0.6 uL; Monocytes % (auto) 7.5 % (0.0-12.0); Neutrophils # (auto) 6.2 uL; Neutrophils % (auto) 75.9 % (37.0-80.0); Platelet Count (auto) 331 10^3/uL (140-450); Red Blood Cells 3.25 10^6/uL (4.0-5.20); Red Cell Distribution Width 19.8 % (11.8-14.3); White Blood Cell 8.1 10^3/uL (4.4-10.8)
[2018-05-26 07:58] LABS: Albumin 2.8 g/dL (3.4-5.0); Bilirubin, Total 0.6 mg/dL (0.2-1.0); Calcium 7.9 mg/dL (8.5-10.1); Potassium 5.1 mmol/L (3.5-5.1); Total Protein 7.4 g/dL (6.4-8.2)
[2018-05-26 09:02] VITALS: BP 130/60
[2018-05-26] MEDS: PANTOPRAZOLE 40 MG TAB PO SCH (09:36)
[2018-05-26] MEDS: CARVEDILOL 12.5 MG TAB PO SCH ×2 (09:36→22:57)
[2018-05-26] MEDS: LEVOTHYROXINE SODIUM 100 MCG TAB PO SCH (09:36)
[2018-05-26] MEDS ORDERED: FUROSEMIDE 100 MG/10ML VIAL IV ONE (09:45)
[2018-05-26] MEDS ORDERED: SODIUM CHL 0.9% 1000 ML BAG XX ONE (09:45)
[2018-05-26 12:17] VITALS: BP 149/74
[2018-05-26 13:03] LABS: INR 1.01 (0.9-1.15); Prothrombin Time 10.8 sec (9.27-12.13)
[2018-05-26 17:31] VITALS: BP 132/66
[2018-05-26 21:30] VITALS: BP 131/57
[2018-05-26] MEDS: INSULIN LANTUS (GLARGINE) 1 /0.01ml (100units/ml) SC SCH (22:00)
[2018-05-26] MEDS: LATANOPROST 0.005 % OPTH(EYE) SOL 2.5ML EACHEYE SCH (22:57)
[2018-05-27] VITALS (7 sets, daily range): BP systolic 107–150; BP diastolic 56–92
[2018-05-27] MEDS: CEFOXITIN SODIUM 1 GM in D5W 5% 50 ML IV SCH ×3 (06:02→23:06)
[2018-05-27] MEDS: ACCU-CHEK COMFORT CURVE STRIP VI SCH ×4 (06:29→22:00)
[2018-05-27] MEDS: InsuLIN REG 1unit/0.01ml Soln (100units/ml) SC SCH ×5 (06:30→22:00)
[2018-05-27 07:36] LABS: Basophils # (auto) 0 uL; Basophils % (auto) 0.6 % (0.0-2.0); Eosinophils # (auto) 0.1 uL; Eosinophils % (auto) 1.3 % (0.0-7.0); Hematocrit 27.2 % (36.0-46.0); Hemoglobin 9.1 g/dL (12.2-16.2); Lymphocytes # (auto) 0.7 uL; Lymphocytes % (auto) 11.2 % (10.0-50.0); Mean Corpuscular Hemoglobin 28.6 pg (28.0-32.0); Mean Corpuscular Hgb Conc. 33.4 g/dL (32.0-36.0); Mean Corpuscular Volume 85.6 fL (80.0-100.0); Monocytes # (auto) 0.5 uL; Monocytes % (auto) 8.4 % (0.0-12.0); Neutrophils # (auto) 5.1 uL; Neutrophils % (auto) 78.5 % (37.0-80.0); Nucleated Red Blood Cells % 0.1 %; Platelet Count (auto) 316 10^3/uL (140-450); Red Blood Cells 3.18 10^6/uL (4.0-5.20); Red Cell Distribution Width 19.6 % (11.8-14.3); White Blood Cell 6.5 10^3/uL (4.4-10.8)
[2018-05-27 07:53] LABS: BUN/Creatinine Ratio 12.1; Calcium 7.9 mg/dL (8.5-10.1); Potassium 5.5 mmol/L (3.5-5.1)
[2018-05-27] MEDS: PANTOPRAZOLE 40 MG TAB PO SCH (10:01)
[2018-05-27] MEDS: CARVEDILOL 3.125 MG TAB PO SCH ×2 (10:02→22:00)
[2018-05-27] MEDS: LEVOTHYROXINE SODIUM 100 MCG TAB PO SCH (10:03)
[2018-05-27] MEDS ORDERED: FUROSEMIDE 100 MG/10ML VIAL IV ONE (10:15)
[2018-05-27] MEDS ORDERED: ACETAMINOPHEN/CODEINE#3 (300/30mg) TAB PO PRN (10:45)
[2018-05-27] MEDS: SEVELAMER 800 MG TAB PO SCH ×2 (12:00→18:01)
[2018-05-27 16:18] LABS: Calcium 8.1 mg/dL (8.5-10.1); Potassium 5.1 mmol/L (3.5-5.1)
[2018-05-27] MEDS: INSULIN LANTUS (GLARGINE) 1 /0.01ml (100units/ml) SC SCH (22:00)
[2018-05-27] MEDS: LATANOPROST 0.005 % OPTH(EYE) SOL 2.5ML EACHEYE SCH (22:00)
[2018-05-27] MEDS ORDERED: InsuLIN REG 1unit/0.01ml Soln (100units/ml) ONE (23:05)
[2018-05-28 05:00] VITALS: BP 139/61
[2018-05-28] MEDS: CEFOXITIN SODIUM 1 GM in D5W 5% 50 ML IV SCH (06:00)
[2018-05-28] MEDS: InsuLIN REG 1unit/0.01ml Soln (100units/ml) SC SCH ×4 (06:51→23:10)
[2018-05-28] MEDS: ACCU-CHEK COMFORT CURVE STRIP VI SCH ×4 (06:51→22:00)
[2018-05-28 07:39] LABS: Basophils # (auto) 0 uL; Basophils % (auto) 0.5 % (0.0-2.0); Eosinophils # (auto) 0.1 uL; Hematocrit 28.5 % (36.0-46.0); Hemoglobin 9.5 g/dL (12.2-16.2); Lymphocytes # (auto) 0.7 uL; Lymphocytes % (auto) 11.9 % (10.0-50.0); Mean Corpuscular Hemoglobin 28.4 pg (28.0-32.0); Mean Corpuscular Hgb Conc. 33.3 g/dL (32.0-36.0); Mean Corpuscular Volume 85.2 fL (80.0-100.0); Monocytes # (auto) 0.6 uL; Monocytes % (auto) 10.1 % (0.0-12.0); Neutrophils # (auto) 4.6 uL; Neutrophils % (auto) 75.5 % (37.0-80.0); Nucleated Red Blood Cells % 0.1 %; Platelet Count (auto) 342 10^3/uL (140-450); Red Blood Cells 3.34 10^6/uL (4.0-5.20); Red Cell Distribution Width 19.6 % (11.8-14.3); White Blood Cell 6.1 10^3/uL (4.4-10.8)
[2018-05-28 08:00] VITALS: BP 135/60
[2018-05-28 08:04] LABS: Albumin 2.8 g/dL (3.4-5.0); BUN/Creatinine Ratio 12.6; Bilirubin, Total 0.5 mg/dL (0.2-1.0); Calcium 8.6 mg/dL (8.5-10.1); Phosphorus 5.5 mg/dL (2.5-4.90); Potassium 4.9 mmol/L (3.5-5.1); Total Protein 7.5 g/dL (6.4-8.2)
[2018-05-28] MEDS ORDERED: LACTULOSE 20Gm/30ML SOLN PO ONE (09:45)
[2018-05-28] MEDS ORDERED: DOCUSATE SOD 100 MG CAP PO ONE (09:45)
[2018-05-28] MEDS: SEVELAMER 800 MG TAB PO SCH ×3 (09:50→18:17)
[2018-05-28] MEDS: LEVOTHYROXINE SODIUM 100 MCG TAB PO SCH (09:50)
[2018-05-28] MEDS: PANTOPRAZOLE 40 MG TAB PO SCH (09:52)
[2018-05-28] MEDS: CARVEDILOL 3.125 MG TAB PO SCH ×2 (09:52→23:09)
[2018-05-28] MEDS ORDERED: FUROSEMIDE 20 MG TAB PO SCH (10:00)
[2018-05-28] MEDS: Glucerna Carbsteady SHAKE Vanilla 8oz PO SCH ×2 (12:00→18:18)
[2018-05-28 13:00] VITALS: BP 138/58
[2018-05-28 22:00] VITALS: BP 132/49
[2018-05-28] MEDS: LATANOPROST 0.005 % OPTH(EYE) SOL 2.5ML EACHEYE SCH (23:09)
[2018-05-28] MEDS: INSULIN LANTUS (GLARGINE) 1 /0.01ml (100units/ml) SC SCH (23:57)
[2018-05-29 05:00] VITALS: BP 130/66
[2018-05-29] MEDS: InsuLIN REG 1unit/0.01ml Soln (100units/ml) SC SCH ×4 (05:59→21:54)
[2018-05-29] MEDS: ACCU-CHEK COMFORT CURVE STRIP VI SCH ×4 (06:00→21:54)
[2018-05-29 07:49] LABS: BUN/Creatinine Ratio 13.7; Calcium 9.1 mg/dL (8.5-10.1); Potassium 5.2 mmol/L (3.5-5.1)
[2018-05-29 07:56] LABS: Basophils # (auto) 0 uL; Basophils % (auto) 0.6 % (0.0-2.0); Eosinophils # (auto) 0.1 uL; Eosinophils % (auto) 1.9 % (0.0-7.0); Hematocrit 27.7 % (36.0-46.0); Hemoglobin 9.3 g/dL (12.2-16.2); Lymphocytes # (auto) 1.1 uL; Mean Corpuscular Hemoglobin 28.5 pg (28.0-32.0); Mean Corpuscular Hgb Conc. 33.5 g/dL (32.0-36.0); Mean Corpuscular Volume 85.1 fL (80.0-100.0); Monocytes # (auto) 0.8 uL; Monocytes % (auto) 12.1 % (0.0-12.0); Neutrophils # (auto) 4.2 uL; Neutrophils % (auto) 67.4 % (37.0-80.0); Platelet Count (auto) 364 10^3/uL (140-450); Red Blood Cells 3.25 10^6/uL (4.0-5.20); Red Cell Distribution Width 19.5 % (11.8-14.3); White Blood Cell 6.3 10^3/uL (4.4-10.8)
[2018-05-29] MEDS: Glucerna Carbsteady SHAKE Vanilla 8oz PO SCH ×3 (08:20→17:35)
[2018-05-29] MEDS: SEVELAMER 800 MG TAB PO SCH ×3 (08:20→17:29)
[2018-05-29 08:22] VITALS: BP 144/81
[2018-05-29 09:00] VITALS: BP 140/59
[2018-05-29] MEDS ORDERED: FUROSEMIDE 100 MG/10ML VIAL IV ONE (09:45)
[2018-05-29] MEDS: CARVEDILOL 3.125 MG TAB PO SCH ×2 (09:47→21:56)
[2018-05-29] MEDS: PANTOPRAZOLE 40 MG TAB PO SCH (09:48)
[2018-05-29] MEDS: LEVOTHYROXINE SODIUM 100 MCG TAB PO SCH (09:48)
[2018-05-29 13:00] VITALS: BP 168/73
[2018-05-29 17:00] VITALS: BP 137/50
[2018-05-29] MEDS: INSULIN LANTUS (GLARGINE) 1 /0.01ml (100units/ml) SC SCH (22:00)
[2018-05-29] MEDS: LATANOPROST 0.005 % OPTH(EYE) SOL 2.5ML EACHEYE SCH (22:00)
[2018-05-29 22:08] VITALS: BP 146/74
[2018-05-29] MEDS: diphenhdrAMINE HCL 50 MG/1 ML VL IV PRN (22:08)
[2018-05-30 04:58] VITALS: BP 139/61
[2018-05-30] MEDS: InsuLIN REG 1unit/0.01ml Soln (100units/ml) SC SCH ×2 (06:18→11:30)
[2018-05-30] MEDS: ACCU-CHEK COMFORT CURVE STRIP VI SCH ×2 (06:18→11:40)
[2018-05-30 06:41] LABS: Basophils # (auto) 0.1 uL; Basophils % (auto) 0.8 % (0.0-2.0); Eosinophils # (auto) 0.2 uL; Eosinophils % (auto) 2.2 % (0.0-7.0); Hematocrit 29.7 % (36.0-46.0); Hemoglobin 9.6 g/dL (12.2-16.2); Lymphocytes # (auto) 1.4 uL; Lymphocytes % (auto) 17.8 % (10.0-50.0); Mean Corpuscular Hemoglobin 27.4 pg (28.0-32.0); Mean Corpuscular Hgb Conc. 32.3 g/dL (32.0-36.0); Mean Corpuscular Volume 84.9 fL (80.0-100.0); Monocytes # (auto) 0.8 uL; Monocytes % (auto) 10.7 % (0.0-12.0); Neutrophils # (auto) 5.3 uL; Neutrophils % (auto) 68.5 % (37.0-80.0); Platelet Count (auto) 375 10^3/uL (140-450); Red Cell Distribution Width 19.3 % (11.8-14.3); White Blood Cell 7.8 10^3/uL (4.4-10.8)
[2018-05-30 07:06] LABS: Calcium 8.7 mg/dL (8.5-10.1); Potassium 4.7 mmol/L (3.5-5.1)
[2018-05-30 07:13] LABS: BUN/Creatinine Ratio 16.7
[2018-05-30] MEDS: Glucerna Carbsteady SHAKE Vanilla 8oz PO SCH ×2 (07:51→12:42)
[2018-05-30 08:00] VITALS: BP 146/62
[2018-05-30] MEDS: SEVELAMER 800 MG TAB PO SCH ×2 (08:47→12:32)
[2018-05-30] MEDS: LEVOTHYROXINE SODIUM 100 MCG TAB PO SCH (09:00)
[2018-05-30] MEDS: PANTOPRAZOLE 40 MG TAB PO SCH (09:00)
[2018-05-30] MEDS: CARVEDILOL 3.125 MG TAB PO SCH (09:04)
[2018-05-30 09:43] VITALS: BP 146/62
[2018-05-30 11:02] VITALS: BP 146/62
[2018-05-30 12:13] VITALS: BP 174/64
== END 2018-05-30 13:30 | disposition home or self-care (01) | DRG 656 ==
LOC: SUR 08:37 → TELE-CENTR 08:38
PROVIDERS: ADMIT Urology; ATTEND Internal Medicine
PROC: 0TT14ZZ Resection of Left Kidney, Percutaneous Endoscopic Approach (ICD-10-PCS; principal; 2018-05-27)
PROC: 8E0W4CZ Robotic Assisted Procedure of Trunk Region, Percutaneous Endoscopic Approach (ICD-10-PCS; 2018-05-27)
DX: C64.2 Malignant neoplasm of left kidney, except renal pelvis (principal); N17.0 Acute kidney failure with tubular necrosis; E87.1 Hypo-osmolality and hyponatremia; D68.69 Other thrombophilia; I13.0 Hypertensive heart and chronic kidney disease with heart failure and stage 1 through stage 4 chronic kidney disease, or unspecified chronic kidney disease; E03.9 Hypothyroidism, unspecified; E11.22 Type 2 diabetes mellitus with diabetic chronic kidney disease; E87.5 Hyperkalemia; E66.9 Obesity, unspecified; I48.2 Chronic atrial fibrillation; I50.9 Heart failure, unspecified; G30.9 Alzheimer's disease, unspecified; F02.80 Dementia in other diseases classified elsewhere, unspecified severity, without behavioral disturbance, psychotic disturbance, mood disturbance, and anxiety; D64.9 Anemia, unspecified; N18.3 Chronic kidney disease, stage 3 (moderate); Z85.3 Personal history of malignant neoplasm of breast; Z68.32 Body mass index [BMI] 32.0-32.9, adult; Z90.13 Acquired absence of bilateral breasts and nipples; Z90.5 Acquired absence of kidney; Z90.710 Acquired absence of both cervix and uterus; Z90.49 Acquired absence of other specified parts of digestive tract; Z74.01 Bed confinement status
CPT/HCPCS: 36415; 71045; 80048; 80053; 81001; 82570; 82962; 83880; 83930; 83935; 84100; 84300; 85025; 85610; 85730; 86850; 86870; 86900; 86901; 97163; A6257; J0694; J1100; J1815; J2001; J2250; J2405; J2704; J7060

== ENCOUNTER → 2018-06-24 | Outpatient (CLI) | payer OTHER ==
[~2018-06-24] MED LIST changes: +OXYB5TAB24 PO; -OXYB5TAB62 PO
[2018-06-24 08:59] LABS: Albumin 3.2 g/dL (3.4-5.0); BUN/Creatinine Ratio 21.9; Calcium 7.8 mg/dL (8.5-10.1); Phosphorus 5.7 mg/dL (2.5-4.90); Potassium 5.2 mmol/L (3.5-5.1)
== END | disposition home or self-care (01) ==
LOC: LAB 07:44
PROVIDERS: ATTEND Internal Medicine
DX: I12.0 Hypertensive chronic kidney disease with stage 5 chronic kidney disease or end stage renal disease (principal); E11.22 Type 2 diabetes mellitus with diabetic chronic kidney disease; N18.5 Chronic kidney disease, stage 5; E78.00 Pure hypercholesterolemia, unspecified; E03.9 Hypothyroidism, unspecified
CPT/HCPCS: 36415; 80069; 83036

== ENCOUNTER 2018-07-02 21:36 | Inpatient (IN) | payer OTHER ==
[~2018-07-02] VITALS: Ht 157.5 cm; Wt 81.1 kg
[2018-07-02 23:18] LABS: INR 1.07 (0.9-1.15); Partial Thromboplastin Time 28.5 sec (23.78-33.04); Prothrombin Time 11.4 sec (9.27-12.13)
[2018-07-02 23:23] LABS: Alanine Aminotransferase 19 U/L (13-56); Albumin 3.3 g/dL (3.4-5.0); Anion Gap 14 (5-15); Aspartate Aminotransferase 23 U/L (15-37); BUN/Creatinine Ratio 21.2; Calcium 7.3 mg/dL (8.5-10.1); Carbon Dioxide 14 mmol/L (21-32); Chloride 102 mmol/L (98-107); GFR African American 11 mL/min; GFR Non-African American 9 mL/min; Glucose 167 mg/dL (74-106); Potassium 5.1 mmol/L (3.5-5.1); Sodium 130 mmol/L (136-145)
[2018-07-02 23:27] LABS: Alkaline Phosphatase 82 U/L (45-117); Bilirubin, Total 0.3 mg/dL (0.2-1.0); Total Protein 7.7 g/dL (6.4-8.2)
[2018-07-02 23:36] LABS: Basophils # (auto) 0 uL; Basophils % (auto) 0.4 % (0.0-2.0); Eosinophils # (auto) 0 uL; Eosinophils % (auto) 0.6 % (0.0-7.0); Hematocrit 23.3 % (36.0-46.0); Hemoglobin 7.3 g/dL (12.2-16.2); Lymphocytes # (auto) 0.7 uL; Lymphocytes % (auto) 10.6 % (10.0-50.0); Mean Corpuscular Hemoglobin 28.4 pg (28.0-32.0); Mean Corpuscular Hgb Conc. 31.5 g/dL (32.0-36.0); Mean Corpuscular Volume 90.1 fL (80.0-100.0); Monocytes # (auto) 0.2 uL; Monocytes % (auto) 3.3 % (0.0-12.0); Neutrophils # (auto) 5.4 uL; Neutrophils % (auto) 85.1 % (37.0-80.0); Nucleated Red Blood Cells % 0.1 %; Platelet Count (auto) 294 10^3/uL (140-450); Red Blood Cells 2.58 10^6/uL (4.0-5.20); White Blood Cell 6.3 10^3/uL (4.4-10.8)
[2018-07-02 23:37] LABS: Red Cell Distribution Width 20.1 % (11.8-14.3)
[2018-07-03] VITALS (13 sets, daily range): BP systolic 126–167; BP diastolic 63–82
[2018-07-03] LABS: Blood Urea Nitrogen 105 mg/dL (7-18)
[2018-07-03] MEDS ORDERED: PANTOPRAZOLE 40 MG/10 ML VIAL IV ONE
[2018-07-03] MEDS ORDERED: SODIUM CHLORIDE 0.9% 500 ML IV ONE
[2018-07-03] MEDS ORDERED: PANTOPRAZOLE 80 MG in SODIUM CHL 0.9% 60 ML IV ONE ×2
[2018-07-03] MEDS ORDERED: MORPHINE SULFATE 4 MG/ML SYR/VIAL IV PRN (08:15)
[2018-07-03] MEDS ORDERED: ONDANSETRON HCL 4 MG/2 ML VIAL IV PRN (08:15)
[2018-07-03] MEDS ORDERED: HYDROcodone-ACET 5/325MG TAB PO PRN (08:15)
[2018-07-03 09:24] LABS: Basophils # (auto) 0 uL; Eosinophils # (auto) 0.1 uL; Eosinophils % (auto) 1.2 % (0.0-7.0); Nucleated Red Blood Cells % 0.1 %
[2018-07-03 09:26] LABS: Basophils % (auto) 0.8 % (0.0-2.0); Hematocrit 22.6 % (36.0-46.0); Mean Corpuscular Hemoglobin 28.3 pg (28.0-32.0); Mean Corpuscular Hgb Conc. 30.3 g/dL (32.0-36.0); Mean Corpuscular Volume 93.4 fL (80.0-100.0); Monocytes # (auto) 0.6 uL; Monocytes % (auto) 12.5 % (0.0-12.0); Neutrophils # (auto) 3.1 uL; Neutrophils % (auto) 64.5 % (37.0-80.0); Platelet Count (auto) 294 10^3/uL (140-450); Red Blood Cells 2.42 10^6/uL (4.0-5.20); White Blood Cell 4.9 10^3/uL (4.4-10.8)
[2018-07-03] MEDS ORDERED: SODIUM BICARBONATE 50ML VIAL 150 ML in D5W 5% 1,000 ML IV SCH (09:30)
[2018-07-03 09:44] LABS: BUN/Creatinine Ratio 20.7; Calcium 7.6 mg/dL (8.5-10.1)
[2018-07-03 09:46] LABS: Hemoglobin 6.9 g/dL (12.2-16.2); Red Cell Distribution Width 20.5 % (11.8-14.3)
[2018-07-03 11:45] LABS: Creatinine, Urine 17 mg/dL (30.0-125.0); Sodium Urine 43 mmol/L (40-220); Urine Amorphous Crystal FEW /hpf (None Seen); Urine Bacteria MANY /hpf (None Seen); Urine Blood TRACE /uL (Negative); Urine Specific Gravity 1.007 (1.001-1.035); Urine WBC 105 /hpf (0 - 5)
[2018-07-03] MEDS: ACETAMINOPHEN 500 MG TAB PO PRN (13:28)
[2018-07-03] MEDS ORDERED: cefTRIAXone 1GM/10ml IVPUSH 10 ML IV ONE (13:45)
[2018-07-03] MEDS ORDERED: GLIM2TAB33 PO (13:59)
[2018-07-03] MEDS ORDERED: AMLO5TAB13 PO (13:59)
[2018-07-03] MEDS ORDERED: METO-631 PO (13:59)
[2018-07-03] MEDS ORDERED: CARV3.1240 PO (14:05)
[2018-07-03] MEDS ORDERED: LEV50T PO (14:05)
[2018-07-03] MEDS ORDERED: FUROSEMIDE 40 MG/4 ML VIAL IV ONE (15:30)
[2018-07-03] MEDS: CARVEDILOL 3.125 MG TAB PO SCH ×2 (16:15→22:52)
[2018-07-03] MEDS ORDERED: CARVEDILOL 3.125 MG TAB PO SCH (22:00)
[2018-07-03] MEDS: PANTOPRAZOLE 40 MG/10 ML VIAL IV SCH (22:00)
[2018-07-03] MEDS: LATANOPROST 0.005 % OPTH(EYE) SOL 2.5ML EACHEYE SCH (22:00)
[2018-07-03] MEDS: SODIUM BICARBONATE 650 MG TAB PO SCH (22:52)
[2018-07-04 05:00] VITALS: BP 183/76
[2018-07-04 07:36] LABS: Basophils # (auto) 0 uL; Basophils % (auto) 0.9 % (0.0-2.0); Eosinophils # (auto) 0.1 uL; Eosinophils % (auto) 3.2 % (0.0-7.0); Hematocrit 27.3 % (36.0-46.0); Lymphocytes # (auto) 0.8 uL; Lymphocytes % (auto) 20.2 % (10.0-50.0); Mean Corpuscular Hemoglobin 28.8 pg (28.0-32.0); Mean Corpuscular Hgb Conc. 32.8 g/dL (32.0-36.0); Mean Corpuscular Volume 87.9 fL (80.0-100.0); Monocytes # (auto) 0.5 uL; Monocytes % (auto) 11.8 % (0.0-12.0); Neutrophils # (auto) 2.7 uL; Neutrophils % (auto) 63.9 % (37.0-80.0); Platelet Count (auto) 266 10^3/uL (140-450); Red Blood Cells 3.11 10^6/uL (4.0-5.20); Red Cell Distribution Width 18.2 % (11.8-14.3); White Blood Cell 4.2 10^3/uL (4.4-10.8)
[2018-07-04] MEDS ORDERED: FUROSEMIDE 20 MG/2 ML VIAL IV ONE (07:45)
[2018-07-04 07:52] LABS: Calcium 7.9 mg/dL (8.5-10.1); Phosphorus 6.5 mg/dL (2.5-4.90); Potassium 4.4 mmol/L (3.5-5.1)
[2018-07-04 09:02] VITALS: BP 163/78
[2018-07-04] MEDS: cefTRIAXone 1GM/10ml IVPUSH 10 ML IV SCH (09:13)
[2018-07-04] MEDS: PANTOPRAZOLE 40 MG/10 ML VIAL IV SCH ×2 (09:14→22:57)
[2018-07-04] MEDS: SODIUM BICARBONATE 650 MG TAB PO SCH ×2 (09:21→22:57)
[2018-07-04] MEDS: CARVEDILOL 3.125 MG TAB PO SCH ×2 (09:21→22:58)
[2018-07-04] MEDS: amLODIPine BESYLATE 5 MG TAB PO SCH (09:22)
[2018-07-04] MEDS ORDERED: LIDOCAINE VISCOUS 2% 15ML UD ONE (09:57)
[2018-07-04] MEDS ORDERED: diphenhdrAMINE HCL 50 MG/1 ML VL ONE (09:57)
[2018-07-04] MEDS ORDERED: MIDAZOLAM HCL 5 MG/ML-1ML VIAL ONE (09:57)
[2018-07-04] MEDS ORDERED: SODIUM CHLORIDE LOCK 10 ML ONE (09:57)
[2018-07-04] MEDS ORDERED: fentaNYL CITRATE 100 MCG/2 ML VL ONE (09:58)
[2018-07-04] MEDS ORDERED: METOPROLOL SUCCINATE XL 50 MG TAB PO SCH (10:00)
[2018-07-04 17:21] VITALS: BP 156/81
[2018-07-04] MEDS: FUROSEMIDE 40 MG/4 ML VIAL IV SCH (18:00)
[2018-07-04 22:00] VITALS: BP 131/69
[2018-07-04] MEDS: LATANOPROST 0.005 % OPTH(EYE) SOL 2.5ML EACHEYE SCH (22:00)
[2018-07-04] MEDS: ACETAMINOPHEN 500 MG TAB PO PRN (23:07)
[2018-07-05 05:00] VITALS: BP_SYST 113; BP_SYST 148; BP_DIAS 70; BP_DIAS 82
[2018-07-05] MEDS: FUROSEMIDE 40 MG/4 ML VIAL IV SCH (06:29)
[2018-07-05 07:37] LABS: Calcium 7.6 mg/dL (8.5-10.1); Potassium 4.3 mmol/L (3.5-5.1)
[2018-07-05 07:39] LABS: BUN/Creatinine Ratio 18.2
[2018-07-05 08:30] VITALS: BP 159/82
[2018-07-05] MEDS ORDERED: POLYETHYLENE GLYCOL 17 GM PWDR PO ONE (09:00)
[2018-07-05] MEDS: cefTRIAXone 1GM/10ml IVPUSH 10 ML IV SCH (09:00)
[2018-07-05] MEDS: SODIUM BICARBONATE 650 MG TAB PO SCH (09:39)
[2018-07-05] MEDS: amLODIPine BESYLATE 5 MG TAB PO SCH (09:40)
[2018-07-05] MEDS: CARVEDILOL 3.125 MG TAB PO SCH (09:40)
[2018-07-05] MEDS: PANTOPRAZOLE 40 MG/10 ML VIAL IV SCH (09:41)
[2018-07-05 12:53] VITALS: BP 152/77
[2018-07-05 16:35] VITALS: BP 165/83
== END 2018-07-05 16:40 | disposition home or self-care (01) | DRG 377 ==
LOC: ER 21:36 → MERGE 21:37 → OVERFLOW 21:37 → WEST WING 07-03 14:06
PROVIDERS: ADMIT Nurse Practitioner Family; ATTEND Family Medicine
PROC: 30233N1 Transfusion of Nonautologous Red Blood Cells into Peripheral Vein, Percutaneous Approach (ICD-10-PCS; 2018-07-03)
PROC: 0DB68ZX Excision of Stomach, Via Natural or Artificial Opening Endoscopic, Diagnostic (ICD-10-PCS; principal; 2018-07-04 12:09)
DX: K29.71 Gastritis, unspecified, with bleeding (principal); N18.6 End stage renal disease; D62 Acute posthemorrhagic anemia; N39.0 Urinary tract infection, site not specified; C64.2 Malignant neoplasm of left kidney, except renal pelvis; E87.2 Acidosis; I13.2 Hypertensive heart and chronic kidney disease with heart failure and with stage 5 chronic kidney disease, or end stage renal disease; N17.9 Acute kidney failure, unspecified; K25.4 Chronic or unspecified gastric ulcer with hemorrhage; E11.22 Type 2 diabetes mellitus with diabetic chronic kidney disease; E27.9 Disorder of adrenal gland, unspecified; K44.9 Diaphragmatic hernia without obstruction or gangrene; E03.9 Hypothyroidism, unspecified; E87.6 Hypokalemia; I48.2 Chronic atrial fibrillation; K59.00 Constipation, unspecified; I50.9 Heart failure, unspecified; Z90.5 Acquired absence of kidney; Z85.528 Personal history of other malignant neoplasm of kidney; Z79.01 Long term (current) use of anticoagulants
CPT/HCPCS: 36415; 36430; 43239; 71045; 80048; 80053; 81001; 82270; 82570; 82962; 83605; 83880; 84100; 84300; 84484; 85025; 85610; 85730; 86850; 86870; 86900; 86901; 86902; 86922; 87040; 87086; 93306; 96365; 96367; 96375; 99291; A6257; C9113; J0696; J2250

== ENCOUNTER → 2018-07-11 | Outpatient (CLI) | payer OTHER ==
[~2018-07-11] MED LIST changes: +AMLO5TAB13 PO; +CARV3.1240 PO; +LEV50T PO; +METO-631 PO
[2018-07-11 10:04] LABS: Basophils # (auto) 0 uL; Basophils % (auto) 0.8 % (0.0-2.0); Eosinophils # (auto) 0.1 uL; Hematocrit 26.7 % (36.0-46.0); Hemoglobin 8.8 g/dL (12.2-16.2); Lymphocytes # (auto) 0.9 uL; Lymphocytes % (auto) 23.3 % (10.0-50.0); Mean Corpuscular Hemoglobin 29.3 pg (28.0-32.0); Mean Corpuscular Hgb Conc. 32.9 g/dL (32.0-36.0); Mean Corpuscular Volume 89.2 fL (80.0-100.0); Monocytes # (auto) 0.5 uL; Monocytes % (auto) 13.5 % (0.0-12.0); Neutrophils # (auto) 2.2 uL; Neutrophils % (auto) 60.4 % (37.0-80.0); Nucleated Red Blood Cells % 0.1 %; Platelet Count (auto) 219 10^3/uL (140-450); Red Blood Cells 2.99 10^6/uL (4.0-5.20); Red Cell Distribution Width 18.2 % (11.8-14.3); White Blood Cell 3.7 10^3/uL (4.4-10.8)
[2018-07-11 10:15] LABS: Urine Bacteria NONE SEEN /hpf (None Seen); Urine Blood TRACE /uL (Negative); Urine Specific Gravity 1.007 (1.001-1.035); Urine WBC 2 /hpf (0 - 5)
[2018-07-11 20:06] LABS: Albumin 3.3 g/dL (3.4-5.0); BUN/Creatinine Ratio 17.6; Calcium 7.4 mg/dL (8.5-10.1); Phosphorus 5.6 mg/dL (2.5-4.90); Potassium 4.6 mmol/L (3.5-5.1)
[2018-07-12 13:58] LABS: Uric Acid 8.2 mg/dL (2.6-6.0)
[2018-07-16 19:58] LABS: Protein, Urine 50.9 mg/dL (0.0-11.9)
== END | disposition home or self-care (01) ==
LOC: LAB 09:09 → MERGE 09:09
PROVIDERS: ATTEND Internal Medicine
DX: I13.0 Hypertensive heart and chronic kidney disease with heart failure and stage 1 through stage 4 chronic kidney disease, or unspecified chronic kidney disease (principal); E11.22 Type 2 diabetes mellitus with diabetic chronic kidney disease; N18.3 Chronic kidney disease, stage 3 (moderate); E11.9 Type 2 diabetes mellitus without complications; I50.1 Left ventricular failure, unspecified; M16.9 Osteoarthritis of hip, unspecified; E03.9 Hypothyroidism, unspecified; N28.89 Other specified disorders of kidney and ureter; L12.9 Pemphigoid, unspecified
CPT/HCPCS: 36415; 80069; 81001; 82306; 82570; 83970; 84156; 84550; 85025

== ENCOUNTER → 2018-07-19 | Outpatient (CLI) | payer OTHER | END | disposition home or self-care (01) | LOC: LAB 13:25 | PROVIDERS: ATTEND Internal Medicine Gastroenterology | DX: R10.9 Unspecified abdominal pain (principal) | CPT/HCPCS: 87045; 87493; 87899 ==

== ENCOUNTER → 2018-07-25 | Outpatient (CLI) | payer OTHER ==
[2018-07-25 16:53] LABS: Albumin 3.5 g/dL (3.4-5.0)
[2018-07-25 16:57] LABS: Bilirubin, Direct 0.1 mg/dL (0-0.2); Bilirubin, Total 0.4 mg/dL (0.2-1.0); Total Protein 7.9 g/dL (6.4-8.2)
[2018-07-29 10:18] LABS: Hepatitis B Surface Antibody Positive
[2018-07-29 13:36] LABS: Hepatitis B Surface Antigen Negative (Negative); Hepatitis C Antibody Negative (Negative)
== END | disposition home or self-care (01) ==
LOC: LAB 14:47
PROVIDERS: ATTEND Internal Medicine
DX: R94.5 Abnormal results of liver function studies (principal)
CPT/HCPCS: 36415; 80076; 86706; 86803; 87340

== ENCOUNTER → 2018-08-05 | Outpatient (CLI) | payer OTHER, MEDICARE ==
[~2018-08-05] MED LIST changes: +ALPR0.254 PO; +FERR-20 PO; +FURO40TA4 PO
[2018-08-05 13:02] LABS: Basophils # (auto) 0 uL; Basophils % (auto) 0.2 % (0.0-2.0); Eosinophils # (auto) 0 uL; Lymphocytes # (auto) 0.7 uL; Lymphocytes % (auto) 16.3 % (10.0-50.0); Mean Corpuscular Hemoglobin 30.5 pg (28.0-32.0); Mean Corpuscular Hgb Conc. 32.2 g/dL (32.0-36.0); Mean Corpuscular Volume 94.9 fL (80.0-100.0); Monocytes # (auto) 0.4 uL; Monocytes % (auto) 9.3 % (0.0-12.0); Neutrophils # (auto) 3.3 uL; Neutrophils % (auto) 73.2 % (37.0-80.0); Platelet Count (auto) 179 10^3/uL (140-450); Red Blood Cells 3.27 10^6/uL (4.0-5.20); White Blood Cell 4.4 10^3/uL (4.4-10.8)
[2018-08-05 13:14] LABS: Urine Bacteria FEW /hpf (None Seen); Urine Blood TRACE /uL (Negative); Urine Specific Gravity 1.011 (1.001-1.035); Urine WBC <1 /hpf (0 - 5)
[2018-08-05 13:19] LABS: Potassium 5.5 mmol/L (3.5-5.1)
[2018-08-05 13:21] LABS: Protein, Urine 230.1 mg/dL (0.0-11.9)
[2018-08-05 13:26] LABS: Albumin 3.8 g/dL (3.4-5.0); BUN/Creatinine Ratio 14.3; Phosphorus 4.6 mg/dL (2.5-4.90); Uric Acid 7.5 mg/dL (2.6-6.0)
== END | disposition home or self-care (01) ==
LOC: LAB 10:37
PROVIDERS: ATTEND Internal Medicine
DX: I13.0 Hypertensive heart and chronic kidney disease with heart failure and stage 1 through stage 4 chronic kidney disease, or unspecified chronic kidney disease (principal); E11.22 Type 2 diabetes mellitus with diabetic chronic kidney disease; N18.3 Chronic kidney disease, stage 3 (moderate); M10.9 Gout, unspecified; R80.9 Proteinuria, unspecified; D63.1 Anemia in chronic kidney disease; E55.9 Vitamin D deficiency, unspecified; E21.3 Hyperparathyroidism, unspecified; I50.9 Heart failure, unspecified
CPT/HCPCS: 36415; 80069; 81001; 82306; 82570; 83970; 84156; 84550; 85025

== ENCOUNTER → 2018-08-15 | Outpatient (CLI) | payer OTHER ==
[~2018-08-15] MED LIST changes: -APIX2.5T PO; -CAR125T OR; -CARV3.1240 PO; -INSLANTI SC; -LEV50T PO; -LOSA100T33 PO; -METF-370 PO; -OMEP20TA PO; -OXYB5TAB24 PO
[2018-08-15 13:43] LABS: Band Neutrophils % (manual) 0; Basophils % (manual) 0 (0.0-2.0); Blast Cells 0; Metamyelocytes % 0; Myelocytes % 0; Promyelocytes % 0
[2018-08-15 13:51] LABS: Urine Bacteria NONE SEEN /hpf (None Seen); Urine Blood TRACE /uL (Negative); Urine Specific Gravity 1.007 (1.001-1.035); Urine WBC 1 /hpf (0 - 5)
[2018-08-15 14:02] LABS: Hematocrit 32.8 % (36.0-46.0); Hemoglobin 10.6 g/dL (12.2-16.2); Mean Corpuscular Hemoglobin 30.8 pg (28.0-32.0); Mean Corpuscular Hgb Conc. 32.4 g/dL (32.0-36.0); Mean Corpuscular Volume 95.2 fL (80.0-100.0); Platelet Count (auto) 253 10^3/uL (140-450); Red Blood Cells 3.44 10^6/uL (4.0-5.20); White Blood Cell 4.6 10^3/uL (4.4-10.8)
[2018-08-15 14:03] LABS: Albumin 3.7 g/dL (3.4-5.0); BUN/Creatinine Ratio 18.9; Calcium 8.6 mg/dL (8.5-10.1); Phosphorus 4.7 mg/dL (2.5-4.90); Protein, Urine 84.2 mg/dL (0.0-11.9); Uric Acid 7.6 mg/dL (2.6-6.0)
[2018-08-15 14:18] LABS: Eosinophils % (manual) 3 (0-7); Lymphocytes % (manual) 19 (10.0-50.0); Monocytes % (manual) 8 (0-12); Reactive Lymphocytes 1
[2018-08-15 14:24] LABS: Potassium 5.6 mmol/L (3.5-5.1)
== END | disposition home or self-care (01) ==
LOC: LAB 13:06
PROVIDERS: ATTEND Urology
DX: I13.2 Hypertensive heart and chronic kidney disease with heart failure and with stage 5 chronic kidney disease, or end stage renal disease (principal); E11.22 Type 2 diabetes mellitus with diabetic chronic kidney disease; N18.5 Chronic kidney disease, stage 5; I50.1 Left ventricular failure, unspecified; N28.89 Other specified disorders of kidney and ureter; E03.9 Hypothyroidism, unspecified; C64.2 Malignant neoplasm of left kidney, except renal pelvis
CPT/HCPCS: 36415; 80048; 80069; 81001; 82306; 82570; 83036; 83970; 84156; 84550; 85007; 85027

== ENCOUNTER → 2018-09-09 | Outpatient (CLI) | payer OTHER, MEDICARE ==
[2018-09-09 13:28] LABS: Albumin 3.8 g/dL (3.4-5.0); BUN/Creatinine Ratio 19.8; Calcium 8.6 mg/dL (8.5-10.1); Phosphorus 6.6 mg/dL (2.5-4.90)
[2018-09-09 13:30] LABS: Basophils # (auto) 0 uL; Basophils % (auto) 0.5 % (0.0-2.0); Eosinophils # (auto) 0.1 uL; Eosinophils % (auto) 1.9 % (0.0-7.0); Hematocrit 34.3 % (36.0-46.0); Hemoglobin 11.2 g/dL (12.2-16.2); Lymphocytes # (auto) 1.3 uL; Lymphocytes % (auto) 27.7 % (10.0-50.0); Mean Corpuscular Hemoglobin 31.3 pg (28.0-32.0); Mean Corpuscular Hgb Conc. 32.6 g/dL (32.0-36.0); Monocytes # (auto) 0.4 uL; Monocytes % (auto) 9.3 % (0.0-12.0); Neutrophils # (auto) 2.8 uL; Neutrophils % (auto) 60.6 % (37.0-80.0); Nucleated Red Blood Cells % 0.1 %; Platelet Count (auto) 230 10^3/uL (140-450); Red Blood Cells 3.58 10^6/uL (4.0-5.20); Red Cell Distribution Width 19.7 % (11.8-14.3); White Blood Cell 4.7 10^3/uL (4.4-10.8)
[2018-09-09 14:16] LABS: Potassium 5.8 mmol/L (3.5-5.1)
== END | disposition home or self-care (01) ==
LOC: LAB 11:45
PROVIDERS: ATTEND Internal Medicine
DX: I12.9 Hypertensive chronic kidney disease with stage 1 through stage 4 chronic kidney disease, or unspecified chronic kidney disease (principal); N18.3 Chronic kidney disease, stage 3 (moderate); D63.1 Anemia in chronic kidney disease
CPT/HCPCS: 36415; 80069; 85025

== ENCOUNTER 2018-10-25 09:03 | Day surgery (SDC) | payer OTHER ==
[2018-10-23 11:01] LABS: Basophils # (auto) 0 uL; Basophils % (auto) 0.7 % (0.0-2.0); Eosinophils # (auto) 0.3 uL; Eosinophils % (auto) 4.7 % (0.0-7.0); Hematocrit 34.6 % (36.0-46.0); Hemoglobin 11.4 g/dL (12.2-16.2); Lymphocytes # (auto) 1.5 uL; Lymphocytes % (auto) 24.8 % (10.0-50.0); Mean Corpuscular Hemoglobin 31.7 pg (28.0-32.0); Mean Corpuscular Hgb Conc. 32.8 g/dL (32.0-36.0); Mean Corpuscular Volume 96.5 fL (80.0-100.0); Monocytes # (auto) 0.5 uL; Monocytes % (auto) 8.8 % (0.0-12.0); Neutrophils # (auto) 3.6 uL; Nucleated Red Blood Cells % 0.1 %; Platelet Count (auto) 252 10^3/uL (140-450); Red Blood Cells 3.59 10^6/uL (4.0-5.20); Red Cell Distribution Width 17.3 % (11.8-14.3); White Blood Cell 5.9 10^3/uL (4.4-10.8)
[2018-10-23 11:16] LABS: BUN/Creatinine Ratio 17.6; Potassium 4.7 mmol/L (3.5-5.1)
[2018-10-23 11:17] LABS: INR 0.95 (0.9-1.15); Partial Thromboplastin Time 26.6 sec (23.78-33.04); Prothrombin Time 10.2 sec (9.27-12.13)
[~2018-10-25] VITALS: Ht 157.5 cm; Wt 74.8 kg
[~2018-10-25 09:03] MED LIST changes: -ALPR0.254 PO; +ALPR0.5T7 PO; +METO-169 PO; -METO-631 PO
[2018-10-25] MEDS ORDERED: LIDOCAINE 2%HCL (LOCAL ANESTH.) INJ 20ML MDV ONE (10:10)
[2018-10-25] MEDS ORDERED: fentaNYL CITRATE 100 MCG/2 ML VL ONE (10:21)
[2018-10-25] MEDS ORDERED: MIDAZOLAM HCL 1MG/1ML-2 ML VIAL ONE (10:22)
[2018-10-25] MEDS ORDERED: ceFAZolin 1GM/50ML 50 ML IV ONE (10:36)
[2018-10-25] MEDS ORDERED: HEPARIN SODIUM (PORCINE) 5000 UNITS/ML 1ML VIAL ONE ×2 (10:47→10:56)
== END 2018-10-25 12:20 | disposition home or self-care (01) ==
LOC: CATH 09:03 → EDSTATUS 13:11
PROVIDERS: ATTEND Internal Medicine
DX: Z45.2 Encounter for adjustment and management of vascular access device (principal); E11.22 Type 2 diabetes mellitus with diabetic chronic kidney disease; I13.0 Hypertensive heart and chronic kidney disease with heart failure and stage 1 through stage 4 chronic kidney disease, or unspecified chronic kidney disease; N18.3 Chronic kidney disease, stage 3 (moderate); E03.9 Hypothyroidism, unspecified; M19.90 Unspecified osteoarthritis, unspecified site; Z87.891 Personal history of nicotine dependence; Z79.899 Other long term (current) drug therapy; Z79.84 Long term (current) use of oral hypoglycemic drugs; Z90.5 Acquired absence of kidney; Z98.890 Other specified postprocedural states
CPT/HCPCS: 36415; 36561; 76000; 76942; 80048; 85025; 85610; 85730; 93005; A6257; C1769; C1894; J0690; J1644; J2250; J3010; J7030; 99152; 99153

== ENCOUNTER → 2018-10-28 | Outpatient (CLI) | payer OTHER ==
[2018-10-28 08:44] LABS: Basophils # (auto) 0 uL; Basophils % (auto) 0.7 % (0.0-2.0); Eosinophils # (auto) 0.2 uL; Eosinophils % (auto) 3.4 % (0.0-7.0); Hematocrit 33.4 % (36.0-46.0); Hemoglobin 10.8 g/dL (12.2-16.2); Lymphocytes # (auto) 1.4 uL; Lymphocytes % (auto) 24.1 % (10.0-50.0); Mean Corpuscular Hemoglobin 31.5 pg (28.0-32.0); Mean Corpuscular Hgb Conc. 32.5 g/dL (32.0-36.0); Mean Corpuscular Volume 97.1 fL (80.0-100.0); Monocytes # (auto) 0.5 uL; Monocytes % (auto) 9.5 % (0.0-12.0); Neutrophils # (auto) 3.5 uL; Neutrophils % (auto) 62.3 % (37.0-80.0); Nucleated Red Blood Cells % 0.1 %; Platelet Count (auto) 221 10^3/uL (140-450); Red Blood Cells 3.44 10^6/uL (4.0-5.20); Red Cell Distribution Width 16.9 % (11.8-14.3); White Blood Cell 5.6 10^3/uL (4.4-10.8)
[2018-10-28 08:50] LABS: Urine Blood TRACE /uL (Negative); Urine Specific Gravity 1.006 (1.001-1.035)
[2018-10-28 10:03] LABS: Creatinine, Urine 14 mg/dL (30.0-125.0); Protein, Urine 175.4 mg/dL (0.0-11.9)
[2018-10-28 10:04] LABS: Hepatitis B Surface Antibody Negative
[2018-10-28 10:08] LABS: Albumin 3.6 g/dL (3.4-5.0); BUN/Creatinine Ratio 16.9; Calcium 8.1 mg/dL (8.5-10.1); Phosphorus 7.5 mg/dL (2.5-4.90); Uric Acid 6.6 mg/dL (2.6-6.0)
[2018-10-28 11:20] LABS: Hepatitis B Surface Antigen Negative (Negative)
[2018-10-28 11:43] LABS: Hepatitis C Antibody Negative (Negative)
== END | disposition home or self-care (01) ==
LOC: LAB 07:58
PROVIDERS: ATTEND Internal Medicine
DX: E13.22 Other specified diabetes mellitus with diabetic chronic kidney disease (principal); I13.0 Hypertensive heart and chronic kidney disease with heart failure and stage 1 through stage 4 chronic kidney disease, or unspecified chronic kidney disease; I50.9 Heart failure, unspecified; N18.3 Chronic kidney disease, stage 3 (moderate); D63.1 Anemia in chronic kidney disease; M10.9 Gout, unspecified; N39.0 Urinary tract infection, site not specified; B17.9 Acute viral hepatitis, unspecified
CPT/HCPCS: 36415; 80069; 81003; 82306; 82570; 83036; 84156; 84550; 85025; 86706; 86803; 87340

== ENCOUNTER → 2018-12-30 | Outpatient (CLI) | payer OTHER ==
[2018-12-30 10:28] LABS: Basophils # (auto) 0 uL; Basophils % (auto) 0.9 % (0.0-2.0); Eosinophils # (auto) 0.1 uL; Eosinophils % (auto) 2.7 % (0.0-7.0); Hematocrit 37.6 % (36.0-46.0); Hemoglobin 12.3 g/dL (12.2-16.2); Lymphocytes # (auto) 1.4 uL; Lymphocytes % (auto) 26.7 % (10.0-50.0); Mean Corpuscular Hemoglobin 32.6 pg (28.0-32.0); Mean Corpuscular Hgb Conc. 32.7 g/dL (32.0-36.0); Mean Corpuscular Volume 99.7 fL (80.0-100.0); Monocytes # (auto) 0.6 uL; Monocytes % (auto) 11.6 % (0.0-12.0); Neutrophils # (auto) 3.1 uL; Neutrophils % (auto) 58.1 % (37.0-80.0); Nucleated Red Blood Cells % 0.1 %; Platelet Count (auto) 241 10^3/uL (140-450); Red Blood Cells 3.77 10^6/uL (4.0-5.20); Red Cell Distribution Width 16.6 % (11.8-14.3); White Blood Cell 5.3 10^3/uL (4.4-10.8)
[2018-12-30 12:41] LABS: Albumin 3.6 g/dL (3.4-5.0); Calcium 9.2 mg/dL (8.5-10.1); Potassium 4.7 mmol/L (3.5-5.1)
[2018-12-30 12:43] LABS: BUN/Creatinine Ratio 10.9; Bilirubin, Total 0.3 mg/dL (0.2-1.0); Total Protein 8.3 g/dL (6.4-8.2)
== END | disposition home or self-care (01) ==
LOC: LAB 10:06
PROVIDERS: ATTEND Internal Medicine
DX: C64.2 Malignant neoplasm of left kidney, except renal pelvis (principal)
CPT/HCPCS: 36415; 80053; 83615; 85025

== ENCOUNTER 2018-12-31 14:45 | Emergency (ER) | payer MEDICARE, OTHER ==
[~2018-12-31] VITALS: Ht 157.5 cm; Wt 73.5 kg
[2018-12-31] MEDS ORDERED: CATHFLO ACTIVASE (ALTEPLASE) 2 MG VIAL IV ONE (15:45)
[2018-12-31 16:28] LABS: BUN/Creatinine Ratio 12.3; Calcium 8.8 mg/dL (8.5-10.1); Potassium 4.4 mmol/L (3.5-5.1)
[2018-12-31 16:42] VITALS: BP 138/84
== END 2018-12-31 17:47 | disposition home or self-care (01) ==
LOC: ER 14:45
DX: T82.49XA Other complication of vascular dialysis catheter, initial encounter (principal); Y92.89 Other specified places as the place of occurrence of the external cause; I13.0 Hypertensive heart and chronic kidney disease with heart failure and stage 1 through stage 4 chronic kidney disease, or unspecified chronic kidney disease; E11.22 Type 2 diabetes mellitus with diabetic chronic kidney disease; N18.9 Chronic kidney disease, unspecified; I50.9 Heart failure, unspecified; Z79.899 Other long term (current) drug therapy; I48.91 Unspecified atrial fibrillation; Z90.49 Acquired absence of other specified parts of digestive tract
CPT/HCPCS: 36415; 80048; 96374; 99283; J2997

== ENCOUNTER 2019-01-29 05:57 | Day surgery (SDC) | payer OTHER ==
[2019-01-27 10:42] LABS: Basophils # (auto) 0 uL; Basophils % (auto) 0.7 % (0.0-2.0); Eosinophils # (auto) 0.1 uL; Eosinophils % (auto) 1.5 % (0.0-7.0); Hematocrit 38.7 % (36.0-46.0); Hemoglobin 12.8 g/dL (12.2-16.2); Lymphocytes # (auto) 1.3 uL; Lymphocytes % (auto) 20.9 % (10.0-50.0); Mean Corpuscular Hemoglobin 32.6 pg (28.0-32.0); Mean Corpuscular Volume 98.6 fL (80.0-100.0); Monocytes # (auto) 0.5 uL; Monocytes % (auto) 8.4 % (0.0-12.0); Neutrophils # (auto) 4.2 uL; Neutrophils % (auto) 68.5 % (37.0-80.0); Platelet Count (auto) 260 10^3/uL (140-450); Red Blood Cells 3.92 10^6/uL (4.0-5.20); Red Cell Distribution Width 15.5 % (11.8-14.3); White Blood Cell 6.2 10^3/uL (4.4-10.8)
[2019-01-27 10:45] LABS: Urine Bacteria NONE SEEN /hpf (None Seen); Urine Blood 1+ /uL (Negative); Urine Specific Gravity 1.005 (1.001-1.035); Urine WBC 4 /hpf (0 - 5)
[2019-01-27 10:51] LABS: INR 0.93 (0.9-1.15); Partial Thromboplastin Time 25.7 sec (23.78-33.04)
[2019-01-27 11:16] LABS: Potassium 3.9 mmol/L (3.5-5.1)
[2019-01-27 11:20] LABS: Albumin 3.8 g/dL (3.4-5.0); Calcium 9.2 mg/dL (8.5-10.1)
[2019-01-27 11:26] LABS: BUN/Creatinine Ratio 10.1; Bilirubin, Total 0.3 mg/dL (0.2-1.0); Total Protein 8.6 g/dL (6.4-8.2)
[~2019-01-29] VITALS: Ht 157.5 cm; Wt 73.5 kg
[~2019-01-29 05:57] MED LIST changes: +CLON0.1T PO; -CLON0.2D6 TD; -LATA0.0015 EACHEYE
[2019-01-29] MEDS ORDERED: ceFAZolin 1GM/50ML 50 ML IV ONE (06:58)
[2019-01-29] MEDS ORDERED: GELATIN 1 SPONGE SIZE 100 TOP ONE (07:18)
[2019-01-29] MEDS ORDERED: HEPARIN SODIUM (PORCINE) 5000 UNITS/ML 1ML VIAL ONE ×2 (07:24→08:37)
[2019-01-29] MEDS ORDERED: THROMBIN (BOVINE) 5000 UNIT SOL VIAL ONE (07:25)
[2019-01-29] MEDS ORDERED: ETOMIDATE (2MG/ML) 20ML VIAL IV ONE (07:25)
[2019-01-29] MEDS ORDERED: InsuLIN REG 1unit/0.01ml Soln (100units/ml) ONE (07:39)
[2019-01-29] MEDS ORDERED: fentaNYL CITRATE 100 MCG/2 ML VL ONE (07:41)
[2019-01-29] MEDS ORDERED: MIDAZOLAM HCL 1MG/1ML-2 ML VIAL ONE (07:41)
[2019-01-29] MEDS ORDERED: SUCCINYLCHOLINE CHLORIDE 20 MG/ML 10ML VIAL IV ONE (07:52)
[2019-01-29] MEDS ORDERED: ceFAZolin 1GM VL ONE (08:06)
[2019-01-29] MEDS ORDERED: PROPOFOL 10 MG/ML 20 ML IV ONE (08:11)
[2019-01-29] MEDS ORDERED: DexAMETHasone SOD PHOS 10MG/1ML VIAL INJ ONE (08:11)
[2019-01-29] MEDS ORDERED: LABETALOL HCL 5 MG/ML 4ML SYRINGE IV PRN (08:45)
[2019-01-29] MEDS ORDERED: MIDAZOLAM HCL 1MG/1ML-2 ML VIAL IV PRN (08:45)
[2019-01-29] MEDS ORDERED: ACCU-CHEK COMFORT CURVE STRIP VI ONE (08:45)
[2019-01-29] MEDS ORDERED: ePHEDrine SULFATE 50 MG/ML AMP IV PRN (08:45)
[2019-01-29] MEDS ORDERED: ONDANSETRON HCL 4 MG/2 ML VIAL IV ONE (08:45)
[2019-01-29] MEDS ORDERED: KETOROLAC TROMETH 30 MG/ML 1ML VIAL IV ONE (08:45)
[2019-01-29] MEDS ORDERED: fentaNYL CITRATE 100 MCG/2 ML VL IV ONE (09:00)
[2019-01-29 10:17] VITALS: BP 164/80
== END 2019-01-29 10:30 | disposition home or self-care (01) ==
LOC: SUR 05:57
PROVIDERS: ATTEND Surgery
DX: E11.22 Type 2 diabetes mellitus with diabetic chronic kidney disease (principal); I12.0 Hypertensive chronic kidney disease with stage 5 chronic kidney disease or end stage renal disease; N18.6 End stage renal disease; E66.9 Obesity, unspecified; E07.9 Disorder of thyroid, unspecified; I49.9 Cardiac arrhythmia, unspecified; Z99.2 Dependence on renal dialysis; Z68.31 Body mass index [BMI] 31.0-31.9, adult
CPT/HCPCS: 36415; 36821; 80053; 81001; 82962; 85025; 85610; 85730; J0330; J0690; J1100; J1644; J1815; J1885; J2250; J2405; J2704; J3010; J7040

== ENCOUNTER 2019-03-26 15:44 | Emergency (ER) | payer MEDICARE, OTHER ==
[~2019-03-26] VITALS: Ht 157.5 cm; Wt 76.7 kg
[2019-03-26 16:54] LABS: Eosinophils # (auto) 0.1 uL; Hematocrit 22.2 % (36.0-46.0); Hemoglobin 7.6 g/dL (12.2-16.2); Lymphocytes # (auto) 1.1 uL; Monocytes # (auto) 0.6 uL; White Blood Cell 7.6 10^3/uL (4.4-10.8)
[2019-03-26 16:55] LABS: Basophils # (auto) 0 uL; Basophils % (auto) 0.6 % (0.0-2.0); Eosinophils % (auto) 0.8 % (0.0-7.0); Lymphocytes % (auto) 14.2 % (10.0-50.0); Mean Corpuscular Hgb Conc. 34.2 g/dL (32.0-36.0); Mean Corpuscular Volume 105.2 fL (80.0-100.0); Monocytes % (auto) 7.6 % (0.0-12.0); Neutrophils # (auto) 5.9 uL; Neutrophils % (auto) 76.8 % (37.0-80.0); Platelet Count (auto) 352 10^3/uL (140-450); Red Blood Cells 2.11 10^6/uL (4.0-5.20); Red Cell Distribution Width 19.6 % (11.8-14.3)
[2019-03-26 17:12] LABS: Albumin 3.7 g/dL (3.4-5.0); Calcium 7.9 mg/dL (8.5-10.1); Potassium 3.9 mmol/L (3.5-5.1)
[2019-03-26 17:15] LABS: Bilirubin, Total 0.4 mg/dL (0.2-1.0); Total Protein 7.3 g/dL (6.4-8.2)
[2019-03-26 22:04] VITALS: BP 135/53
[2019-03-26 22:30] VITALS: BP 163/76
[2019-03-26 22:42] VITALS: BP 152/71
[2019-03-26 23:12] VITALS: BP 147/51
[2019-03-27 00:41] VITALS: BP 143/78
[2019-03-27 00:43] VITALS: BP 143/78
== END 2019-03-27 01:28 | disposition home or self-care (01) ==
LOC: ER 15:48
DX: D64.9 Anemia, unspecified (principal); I13.2 Hypertensive heart and chronic kidney disease with heart failure and with stage 5 chronic kidney disease, or end stage renal disease; E11.22 Type 2 diabetes mellitus with diabetic chronic kidney disease; N18.6 End stage renal disease; I50.9 Heart failure, unspecified; Z99.2 Dependence on renal dialysis; I48.91 Unspecified atrial fibrillation; Z90.49 Acquired absence of other specified parts of digestive tract; Z79.899 Other long term (current) drug therapy
CPT/HCPCS: 36415; 36430; 80053; 85025; 86850; 86870; 86900; 86901; 93005; 94761; 99285; J7050; P9016; 86922

== ENCOUNTER 2019-05-29 12:24 | Emergency (ER) | payer OTHER ==
[~2019-05-29] VITALS: Ht 157.5 cm; Wt 73.9 kg
[~2019-05-29 12:24] MED LIST changes: -AMLO5TAB13 PO; +AMLO5TAB15 PO
[2019-05-29] MEDS ORDERED: CATHFLO ACTIVASE (ALTEPLASE) 2 MG VIAL IV ONE (13:00)
[2019-05-29] MEDS ORDERED: STERILE WATER 10 ML ONE (14:03)
[2019-05-29 15:15] VITALS: BP 158/58
== END 2019-05-29 15:36 | disposition home or self-care (01) ==
LOC: ER 12:29
DX: T82.49XA Other complication of vascular dialysis catheter, initial encounter (principal); I13.0 Hypertensive heart and chronic kidney disease with heart failure and stage 1 through stage 4 chronic kidney disease, or unspecified chronic kidney disease; E11.22 Type 2 diabetes mellitus with diabetic chronic kidney disease; I50.9 Heart failure, unspecified; N18.6 End stage renal disease; I48.91 Unspecified atrial fibrillation; Z90.49 Acquired absence of other specified parts of digestive tract; Y92.89 Other specified places as the place of occurrence of the external cause
CPT/HCPCS: 96374; 99283; J2997

== ENCOUNTER → 2019-07-29 | Outpatient (CLI) | payer MEDICARE, OTHER ==
[2019-07-29 10:55] LABS: Basophils # (auto) 0 uL; Basophils % (auto) 0.6 % (0.0-2.0); Eosinophils # (auto) 0 uL; Eosinophils % (auto) 0.7 % (0.0-7.0); Hematocrit 37.3 % (36.0-46.0); Hemoglobin 12.1 g/dL (12.2-16.2); Lymphocytes # (auto) 1.1 uL; Lymphocytes % (auto) 18.1 % (10.0-50.0); Mean Corpuscular Hemoglobin 31.7 pg (28.0-32.0); Mean Corpuscular Hgb Conc. 32.5 g/dL (32.0-36.0); Mean Corpuscular Volume 97.5 fL (80.0-100.0); Monocytes # (auto) 0.5 uL; Monocytes % (auto) 7.8 % (0.0-12.0); Neutrophils # (auto) 4.3 uL; Neutrophils % (auto) 72.8 % (37.0-80.0); Nucleated Red Blood Cells % 0.1 %; Platelet Count (auto) 203 10^3/uL (140-450); Red Blood Cells 3.82 10^6/uL (4.0-5.20); Red Cell Distribution Width 17.4 % (11.8-14.3); White Blood Cell 5.9 10^3/uL (4.4-10.8)
[2019-07-29 11:35] LABS: Albumin 3.7 g/dL (3.4-5.0); BUN/Creatinine Ratio 7.6; Bilirubin, Total 0.6 mg/dL (0.2-1.0); Calcium 8.3 mg/dL (8.5-10.1); Potassium 3.9 mmol/L (3.5-5.1)
== END | disposition home or self-care (01) ==
LOC: LAB 10:39
PROVIDERS: ATTEND Internal Medicine Nephrology
DX: C64.2 Malignant neoplasm of left kidney, except renal pelvis (principal); I12.9 Hypertensive chronic kidney disease with stage 1 through stage 4 chronic kidney disease, or unspecified chronic kidney disease; E11.22 Type 2 diabetes mellitus with diabetic chronic kidney disease; D63.1 Anemia in chronic kidney disease; N18.6 End stage renal disease; Z85.820 Personal history of malignant melanoma of skin
CPT/HCPCS: 36415; 80053; 80061; 83036; 83615; 84439; 84443; 85025

== ENCOUNTER → 2019-08-13 | Outpatient (CLI) | payer OTHER ==
[~2019-08-13] MED LIST changes: +INSDRIP SC; +LATA0.0015 EACHEYE
[2019-08-13 15:23] LABS: Phosphorus 5.1 mg/dL (2.5-4.90)
== END | disposition home or self-care (01) ==
LOC: LAB 14:31
PROVIDERS: ATTEND Internal Medicine Nephrology
DX: I13.2 Hypertensive heart and chronic kidney disease with heart failure and with stage 5 chronic kidney disease, or end stage renal disease (principal); E11.22 Type 2 diabetes mellitus with diabetic chronic kidney disease; N18.6 End stage renal disease; I50.9 Heart failure, unspecified; M79.10 Myalgia, unspecified site; Z87.891 Personal history of nicotine dependence; Z90.12 Acquired absence of left breast and nipple; Z85.3 Personal history of malignant neoplasm of breast; Z82.49 Family history of ischemic heart disease and other diseases of the circulatory system; Z83.3 Family history of diabetes mellitus; Z80.0 Family history of malignant neoplasm of digestive organs
CPT/HCPCS: 36415; 82550; 84100

== ENCOUNTER → 2019-08-27 | Day surgery (SDC) | payer OTHER ==
[2019-08-25 12:32] LABS: Basophils # (auto) 0.1 uL; Eosinophils # (auto) 0.1 uL; Eosinophils % (auto) 0.9 % (0.0-7.0); Hematocrit 38.5 % (36.0-46.0); Hemoglobin 12.7 g/dL (12.2-16.2); Lymphocytes # (auto) 0.9 uL; Lymphocytes % (auto) 16.3 % (10.0-50.0); Mean Corpuscular Hemoglobin 32.4 pg (28.0-32.0); Mean Corpuscular Hgb Conc. 32.9 g/dL (32.0-36.0); Mean Corpuscular Volume 98.3 fL (80.0-100.0); Monocytes # (auto) 0.5 uL; Monocytes % (auto) 9.3 % (0.0-12.0); Neutrophils % (auto) 72.5 % (37.0-80.0); Nucleated Red Blood Cells % 0.1 %; Platelet Count (auto) 203 10^3/uL (140-450); Red Blood Cells 3.92 10^6/uL (4.0-5.20); Red Cell Distribution Width 17.7 % (11.8-14.3); White Blood Cell 5.5 10^3/uL (4.4-10.8)
[2019-08-25 12:46] LABS: INR 1.13 (0.9-1.15); Partial Thromboplastin Time 25.2 sec (23.64-32.05); Urine Bacteria NONE SEEN /hpf (None Seen); Urine Blood TRACE /uL (Negative); Urine Specific Gravity 1.007 (1.001-1.035); Urine WBC 34 /hpf (0 - 5)
[2019-08-25 13:24] LABS: Albumin 3.8 g/dL (3.4-5.0); Calcium 8.7 mg/dL (8.5-10.1)
[2019-08-25 13:28] LABS: BUN/Creatinine Ratio 13.8; Bilirubin, Total 0.6 mg/dL (0.2-1.0); Total Protein 7.7 g/dL (6.4-8.2)
[~2019-08-27] VITALS: Ht 157.5 cm; Wt 76.2 kg
[~2019-08-27] MED LIST changes: +ceFAZolin 1GM/50ML 50 ML IV ONE
== END | disposition home or self-care (01) ==
LOC: SUR 08:54
PROVIDERS: ATTEND Surgery
DX: Z01.812 Encounter for preprocedural laboratory examination (principal); N18.6 End stage renal disease; Z88.2 Allergy status to sulfonamides
CPT/HCPCS: 36415; 80053; 81001; 82962; 85025; 85610; 85730; 86850; 86870; 86900; 86901; J0690

== ENCOUNTER 2019-08-31 19:06 | Emergency (ER) | payer OTHER ==
[~2019-08-31] VITALS: Ht 157.5 cm; Wt 77.1 kg
[~2019-08-31 19:06] MED LIST changes: -ceFAZolin 1GM/50ML 50 ML IV ONE
[2019-08-31 20:06] LABS: Basophils # (auto) 0 uL; Basophils % (auto) 0.5 % (0.0-2.0); Eosinophils # (auto) 0 uL; Eosinophils % (auto) 0.8 % (0.0-7.0); Hematocrit 37.2 % (36.0-46.0); Hemoglobin 12.5 g/dL (12.2-16.2); Lymphocytes % (auto) 17.7 % (10.0-50.0); Mean Corpuscular Hgb Conc. 33.7 g/dL (32.0-36.0); Monocytes # (auto) 0.5 uL; Monocytes % (auto) 9.7 % (0.0-12.0); Neutrophils % (auto) 71.3 % (37.0-80.0); Nucleated Red Blood Cells % 0.1 %; Platelet Count (auto) 192 10^3/uL (140-450); Red Blood Cells 3.79 10^6/uL (4.0-5.20); Red Cell Distribution Width 17.8 % (11.8-14.3); White Blood Cell 5.6 10^3/uL (4.4-10.8)
[2019-08-31 20:24] LABS: Albumin 3.7 g/dL (3.4-5.0); Anion Gap 11 (5-15); Blood Urea Nitrogen 41 mg/dL (7-18); Calcium 8.1 mg/dL (8.5-10.1); Carbon Dioxide 20 mmol/L (21-32); Chloride 102 mmol/L (98-107); Glucose 190 mg/dL (74-106); Sodium 133 mmol/L (136-145)
[2019-08-31 20:30] LABS: Alanine Aminotransferase 13 U/L (13-56); Alkaline Phosphatase 93 U/L (45-117); Aspartate Aminotransferase 16 U/L (15-37); BUN/Creatinine Ratio 10.7; Bilirubin, Total 0.6 mg/dL (0.2-1.0); GFR African American 15 mL/min; GFR Non-African American 12 mL/min; Total Protein 7.8 g/dL (6.4-8.2)
[2019-08-31 20:49] VITALS: BP 123/50
== END 2019-08-31 22:27 | disposition home or self-care (01) ==
LOC: ER 19:06
DX: M71.21 Synovial cyst of popliteal space [Baker], right knee (principal); I13.2 Hypertensive heart and chronic kidney disease with heart failure and with stage 5 chronic kidney disease, or end stage renal disease; E11.22 Type 2 diabetes mellitus with diabetic chronic kidney disease; N18.6 End stage renal disease; I50.9 Heart failure, unspecified
CPT/HCPCS: 36415; 80053; 84484; 85025; 93971; 99284; J7030

== ENCOUNTER → 2019-12-17 | Outpatient (CLI) | payer OTHER ==
[~2019-12-17] MED LIST changes: -LATA0.0015 EACHEYE; +LATA0.0019 EACHEYE
[2019-12-17 13:26] LABS: BUN/Creatinine Ratio 12.8; Calcium 9.4 mg/dL (8.5-10.1); Potassium 4.8 mmol/L (3.5-5.1)
== END | disposition home or self-care (01) ==
LOC: LAB 12:09
PROVIDERS: ATTEND Internal Medicine
DX: I10 Essential (primary) hypertension (principal)
CPT/HCPCS: 36415; 80048

== ENCOUNTER → 2019-12-19 | Day surgery (SDC) | payer MEDICARE, OTHER ==
[2019-12-17 12:32] LABS: Basophils # (auto) 0.1 10 ^3/uL (0-0.2); Basophils % (auto) 1.2 % (0.0-2.0); Eosinophils # (auto) 0.1 10 ^3/uL (0-0.8); Eosinophils % (auto) 0.9 % (0.0-7.0); Hematocrit 37.6 % (36.0-46.0); Hemoglobin 12.6 g/dL (12.2-16.2); Lymphocytes # (auto) 1.3 10 ^3/uL (0.4-5.4); Lymphocytes % (auto) 20.5 % (10.0-50.0); Mean Corpuscular Hemoglobin 32.6 pg (28.0-32.0); Mean Corpuscular Hgb Conc. 33.4 g/dL (32.0-36.0); Mean Corpuscular Volume 97.6 fL (80.0-100.0); Monocytes # (auto) 0.6 10 ^3/uL (0-1.3); Monocytes % (auto) 9.7 % (0.0-12.0); Neutrophils # (auto) 4.2 10 ^3/uL (1.6-8.6); Neutrophils % (auto) 67.7 % (37.0-80.0); Platelet Count (auto) 213 10^3/uL (140-450); Red Blood Cells 3.85 10^6/uL (4.0-5.20); Red Cell Distribution Width 16.5 % (11.8-14.3); White Blood Cell 6.1 10^3/uL (4.4-10.8)
[2019-12-17 12:44] LABS: Urine Bacteria FEW /hpf (None Seen); Urine Blood TRACE /uL (Negative); Urine WBC 11 /hpf (0 - 5)
[2019-12-17 12:49] LABS: INR 1.05 (0.9-1.15); Partial Thromboplastin Time 27.3 sec (23.64-32.05)
[2019-12-17 13:17] LABS: Albumin 3.9 g/dL (3.4-5.0); Calcium 9.5 mg/dL (8.5-10.1)
[2019-12-17 13:21] LABS: Bilirubin, Total 0.5 mg/dL (0.2-1.0); Total Protein 8.8 g/dL (6.4-8.2)
[2019-12-17 13:22] LABS: BUN/Creatinine Ratio 12.9
[~2019-12-19] VITALS: Ht 157.5 cm; Wt 77.1 kg
[~2019-12-19] MED LIST changes: -FERR-20 PO; +FERR-7 PO; +HEPARIN SODIUM (PORCINE) 5000 UNITS/ML 1ML VIAL ONE; +LIDOCAINE 2%HCL (LOCAL ANESTH.) INJ 20ML MDV ONE; +MIDAZOLAM HCL 1MG/1ML-2 ML VIAL ONE; +fentaNYL CITRATE 100 MCG/2 ML VL ONE
== END | disposition home or self-care (01) ==
LOC: CATH 10:24
PROVIDERS: ATTEND Surgery
DX: T82.49XA Other complication of vascular dialysis catheter, initial encounter (principal); I12.0 Hypertensive chronic kidney disease with stage 5 chronic kidney disease or end stage renal disease; E11.22 Type 2 diabetes mellitus with diabetic chronic kidney disease; N18.6 End stage renal disease; Z79.84 Long term (current) use of oral hypoglycemic drugs; Z79.899 Other long term (current) drug therapy; Z79.4 Long term (current) use of insulin; Z99.2 Dependence on renal dialysis
CPT/HCPCS: 36415; 36581; 80053; 81001; 85025; 85610; 85730; 93005; C1769; J1644; J2250; J3010; J7040; 99152

== ENCOUNTER → 2020-01-28 | Outpatient (CLI) | payer OTHER ==
[~2020-01-28] MED LIST changes: -FERR-7 PO; -HEPARIN SODIUM (PORCINE) 5000 UNITS/ML 1ML VIAL ONE; -LIDOCAINE 2%HCL (LOCAL ANESTH.) INJ 20ML MDV ONE; -MIDAZOLAM HCL 1MG/1ML-2 ML VIAL ONE; -fentaNYL CITRATE 100 MCG/2 ML VL ONE
[2020-01-28 10:13] LABS: Basophils # (auto) 0.1 10 ^3/uL (0-0.2); Basophils % (auto) 0.9 % (0.0-2.0); Eosinophils # (auto) 0.1 10 ^3/uL (0-0.8); Eosinophils % (auto) 1.2 % (0.0-7.0); Hematocrit 35.5 % (36.0-46.0); Hemoglobin 11.8 g/dL (12.2-16.2); Lymphocytes # (auto) 1.2 10 ^3/uL (0.4-5.4); Lymphocytes % (auto) 20.7 % (10.0-50.0); Mean Corpuscular Hemoglobin 33.1 pg (28.0-32.0); Mean Corpuscular Hgb Conc. 33.2 g/dL (32.0-36.0); Mean Corpuscular Volume 99.7 fL (80.0-100.0); Monocytes # (auto) 0.5 10 ^3/uL (0-1.3); Monocytes % (auto) 9.3 % (0.0-12.0); Neutrophils # (auto) 3.9 10 ^3/uL (1.6-8.6); Neutrophils % (auto) 67.9 % (37.0-80.0); Nucleated Red Blood Cells % 0.1 %; Platelet Count (auto) 223 10^3/uL (140-450); Red Blood Cells 3.56 10^6/uL (4.0-5.20); Red Cell Distribution Width 17.1 % (11.8-14.3); White Blood Cell 5.7 10^3/uL (4.4-10.8)
[2020-01-28 10:57] LABS: Albumin 3.6 g/dL (3.4-5.0); Calcium 8.4 mg/dL (8.5-10.1); Potassium 4.4 mmol/L (3.5-5.1)
[2020-01-28 11:00] LABS: BUN/Creatinine Ratio 8.6; Bilirubin, Total 0.6 mg/dL (0.2-1.0)
== END | disposition home or self-care (01) ==
LOC: LAB 09:53
PROVIDERS: ATTEND Internal Medicine
DX: I10 Essential (primary) hypertension (principal)
CPT/HCPCS: 36415; 80053; 83615; 85025

== ENCOUNTER 2020-03-17 11:39 | Day surgery (SDC) | payer OTHER ==
[2020-03-15 10:15] LABS: Basophils # (auto) 0 10 ^3/uL (0-0.2); Basophils % (auto) 0.6 % (0.0-2.0); Eosinophils # (auto) 0.1 10 ^3/uL (0-0.8); Hematocrit 36.7 % (36.0-46.0); Hemoglobin 12.3 g/dL (12.2-16.2); Lymphocytes # (auto) 1.2 10 ^3/uL (0.4-5.4); Lymphocytes % (auto) 20.4 % (10.0-50.0); Mean Corpuscular Hemoglobin 33.4 pg (28.0-32.0); Mean Corpuscular Hgb Conc. 33.5 g/dL (32.0-36.0); Mean Corpuscular Volume 99.6 fL (80.0-100.0); Monocytes # (auto) 0.5 10 ^3/uL (0-1.3); Monocytes % (auto) 8.9 % (0.0-12.0); Neutrophils # (auto) 4.1 10 ^3/uL (1.6-8.6); Neutrophils % (auto) 69.1 % (37.0-80.0); Nucleated Red Blood Cells % 0.1 %; Platelet Count (auto) 239 10^3/uL (140-450); Red Blood Cells 3.68 10^6/uL (4.0-5.20); Red Cell Distribution Width 16.6 % (11.8-14.3); White Blood Cell 5.9 10^3/uL (4.4-10.8)
[2020-03-15 10:16] LABS: Urine Bacteria NONE SEEN /hpf (None Seen); Urine Blood TRACE /uL (Negative); Urine Specific Gravity 1.005 (1.001-1.035); Urine WBC <1 /hpf (0 - 5)
[2020-03-15 10:28] LABS: INR 1.05 (0.9-1.15); Partial Thromboplastin Time 26.5 sec (23.64-32.05)
[2020-03-15 10:35] LABS: Calcium 8.9 mg/dL (8.5-10.1); Potassium 4.6 mmol/L (3.5-5.1)
[2020-03-15 10:41] LABS: Albumin 3.6 g/dL (3.4-5.0); BUN/Creatinine Ratio 13.3; Bilirubin, Total 0.4 mg/dL (0.2-1.0); Total Protein 8.1 g/dL (6.4-8.2)
[~2020-03-17] VITALS: Ht 157.5 cm; Wt 77.1 kg
[~2020-03-17 11:39] MED LIST changes: +FERR-7 PO
[2020-03-17 13:30] VITALS: BP 185/82
[2020-03-17] MEDS ORDERED: DexAMETHasone SOD PHOS 10MG/1ML VIAL INJ IV ONE (15:35)
[2020-03-17] MEDS ORDERED: fentaNYL CITRATE 100 MCG/2 ML VL ONE (15:43)
[2020-03-17] MEDS ORDERED: MIDAZOLAM HCL 1MG/1ML-2 ML VIAL ONE (15:44)
[2020-03-17] MEDS ORDERED: MIDAZOLAM HCL 1MG/1ML-2 ML VIAL IV PRN (15:45)
[2020-03-17] MEDS ORDERED: HYDROmorphone HCL 2 MG/ML VL IV PRN (15:45)
[2020-03-17] MEDS ORDERED: ePHEDrine SULFATE 50 MG/ML AMP IV PRN (15:45)
[2020-03-17] MEDS ORDERED: hydrALAZINE HCL 20 MG/ML VL IV PRN (15:45)
[2020-03-17] MEDS ORDERED: LABETALOL HCL 5 MG/ML 4ML SYRINGE IV PRN (15:45)
[2020-03-17] MEDS ORDERED: ONDANSETRON HCL 4 MG/2 ML VIAL IV PRN (15:45)
[2020-03-17] MEDS ORDERED: MORPHINE SULFATE 4 MG/ML SYR/VIAL IV PRN (15:45)
[2020-03-17] MEDS ORDERED: PROPOFOL 10 MG/ML 20 ML IV ONE (16:07)
[2020-03-17] MEDS ORDERED: FLUMAZENIL 0.1 MG/ML INJ 10ML MDV IV ONE (16:25)
== END 2020-03-17 18:06 | disposition home or self-care (01) ==
LOC: SUR 11:39
PROVIDERS: ATTEND Surgery
DX: Z45.2 Encounter for adjustment and management of vascular access device (principal); E11.22 Type 2 diabetes mellitus with diabetic chronic kidney disease; I12.0 Hypertensive chronic kidney disease with stage 5 chronic kidney disease or end stage renal disease; N18.6 End stage renal disease; E07.9 Disorder of thyroid, unspecified; I49.9 Cardiac arrhythmia, unspecified; Z90.10 Acquired absence of unspecified breast and nipple; Z79.899 Other long term (current) drug therapy; Z98.890 Other specified postprocedural states; Z11.59 Encounter for screening for other viral diseases
CPT/HCPCS: 36415; 36589; 80053; 81001; 82962; 85025; 85610; 85730; 87635; 88300; J1100; J2250; J2704; J3010

== ENCOUNTER 2020-06-16 08:21 | Inpatient (IN) | payer MEDICARE, OTHER ==
[~2020-06-16] VITALS: Ht 157.5 cm; Wt 82.2 kg
[2020-06-16 09:02] LABS: Basophils # (auto) 0 10 ^3/uL (0-0.2); Basophils % (auto) 0.2 % (0.0-2.0); Eosinophils # (auto) 0 10 ^3/uL (0-0.8); Hematocrit 33.9 % (36.0-46.0); Hemoglobin 11.1 g/dL (12.2-16.2); Lymphocytes # (auto) 0.6 10 ^3/uL (0.4-5.4); Lymphocytes % (auto) 5.7 % (10.0-50.0); Mean Corpuscular Hemoglobin 32.5 pg (28.0-32.0); Mean Corpuscular Hgb Conc. 32.8 g/dL (32.0-36.0); Mean Corpuscular Volume 99.1 fL (80.0-100.0); Monocytes # (auto) 0.6 10 ^3/uL (0-1.3); Monocytes % (auto) 5.3 % (0.0-12.0); Neutrophils % (auto) 88.8 % (37.0-80.0); Platelet Count (auto) 349 10^3/uL (140-450); Red Blood Cells 3.42 10^6/uL (4.0-5.20); Red Cell Distribution Width 15.7 % (11.8-14.3); White Blood Cell 11.3 10^3/uL (4.4-10.8)
[2020-06-16 09:14] LABS: Albumin 3.3 g/dL (3.4-5.0); Anion Gap 18 (5-15); Calcium 8.7 mg/dL (8.5-10.1); Carbon Dioxide 13 mmol/L (21-32); Chloride 90 mmol/L (98-107); Glucose 283 mg/dL (74-106); Potassium 5.5 mmol/L (3.5-5.1); Sodium 121 mmol/L (136-145)
[2020-06-16 09:22] LABS: Alanine Aminotransferase 14 U/L (13-56); Alkaline Phosphatase 114 U/L (45-117); Aspartate Aminotransferase 13 U/L (15-37); BUN/Creatinine Ratio 12.3; Bilirubin, Total 0.6 mg/dL (0.2-1.0); GFR African American 7 mL/min; GFR Non-African American 5 mL/min; Total Protein 8.5 g/dL (6.4-8.2)
[2020-06-16 09:26] LABS: Blood Urea Nitrogen 94 mg/dL (7-18)
[2020-06-16] MEDS ORDERED: FUROSEMIDE 40 MG/4 ML VIAL IV ONE ×2 (10:45→14:15)
[2020-06-16] MEDS ORDERED: MORPHINE SULF INJ 2 MG/ML SYRINGE 1ML IV PRN ×3 (13:00→14:15)
[2020-06-16] MEDS ORDERED: NITROGLYCERIN 0.4 MG SL TAB SL PRN ×2 (13:00→14:15)
[2020-06-16] MEDS ORDERED: DEXTROSE (50%) 50ML SYRG IV PRN (14:15)
[2020-06-16] MEDS ORDERED: VANCOMYCIN PER PHARMACY 0 MG IV SCH (14:15)
[2020-06-16] MEDS ORDERED: ALUM & MAG HYDROX-SIMETH LIQ(MAALOX) 30 ML PO PRN (14:15)
[2020-06-16] MEDS ORDERED: hydrALAZINE HCL 25 MG TAB PO PRN (14:15)
[2020-06-16] MEDS ORDERED: ACETAMINOPHEN 325 MG TAB PO PRN (14:15)
[2020-06-16] MEDS ORDERED: DOCUSATE SOD 100 MG CAP PO PRN (14:15)
[2020-06-16] MEDS ORDERED: HYDROcodone-ACET 5/325MG TAB PO PRN (14:15)
[2020-06-16] MEDS ORDERED: LORazepam 0.5 MG TAB PO PRN (14:15)
[2020-06-16 14:42] LABS: Alcohol, Urine < 3.0 mg/dL (0-10); Amphetamine Screen, Urine NEGATIVE (NEGATIVE); Barbiturate Scree,Urine NEGATIVE (NEGATIVE); Benzodiazephine Screen, Urine NEGATIVE (NEGATIVE); Cannabinoid Screen, Urine NEGATIVE (NEGATIVE); Cocaine Screen, Urine NEGATIVE (NEGATIVE); Opiate Scree,Urine NEGATIVE (NEGATIVE); Phencyclidine Screen, Urine NEGATIVE (NEGATIVE)
[2020-06-16 14:48] LABS: Urine Bacteria FEW /hpf (None Seen); Urine Blood TRACE /uL (Negative); Urine Specific Gravity 1.018 (1.001-1.035); Urine WBC 73 /hpf (0 - 5)
[2020-06-16 15:00] VITALS: BP 123/68
[2020-06-16] MEDS ORDERED: VANCOMYCIN 1GM/250ML 250 ML IV ONE (16:00)
[2020-06-16 17:00] VITALS: BP 135/56
[2020-06-16] MEDS: FUROSEMIDE 40 MG/4 ML VIAL IV SCH (17:46)
[2020-06-16] MEDS: InsuLIN REG 1unit/0.01ml Soln (100units/ml) SC SCH (17:48)
[2020-06-16] MEDS: ACCU-CHEK COMFORT CURVE STRIP VI SCH (17:48)
[2020-06-16 18:02] VITALS: BP 107/54
[2020-06-16 18:48] LABS: Cholesterol 133 mg/dL (< 200)
[2020-06-16 18:52] LABS: HDL Cholesterol 56 mg/dL (40-59); LDL Cholesterol 60 mg/dL (< 100); Triglycerides 136 mg/dL (< 150)
[2020-06-16] MEDS: ONDANSETRON HCL 4 MG/2 ML VIAL IV PRN (20:14)
[2020-06-16 21:56] VITALS: BP 138/67
[2020-06-16] MEDS ORDERED: amLODIPine BESYLATE 5 MG TAB PO SCH (22:00)
[2020-06-16] MEDS ORDERED: PIPERACILLIN-TAZOB 2.25GM 50 ML IV SCH (22:00)
[2020-06-16] MEDS ORDERED: LATANOPROST 0.005 % OPTH(EYE) SOL 2.5ML EACHEYE SCH (22:00)
[2020-06-16] MEDS: cloNIDine HCL 0.1 MG TAB PO SCH (22:00)
[2020-06-17] VITALS (45 sets, daily range): BP systolic 64–113; BP diastolic 18–48
[2020-06-17] MEDS: ACCU-CHEK COMFORT CURVE STRIP VI SCH ×2 (00:23→06:18)
[2020-06-17] MEDS: ONDANSETRON HCL 4 MG/2 ML VIAL IV PRN (00:24)
[2020-06-17] MEDS ORDERED: SUCCINYLCHOLINE CHLORIDE 20 MG/ML 10ML VIAL IV ONE (02:24)
[2020-06-17] MEDS ORDERED: ETOMIDATE (2MG/ML) 20ML VIAL IV ONE (02:24)
[2020-06-17] MEDS ORDERED: MIDAZOLAM DRIP 50 mg/50mL 50 ML IV ONE (02:41)
[2020-06-17] MEDS ORDERED: DOPamine 1600MCG/ML D5W 250 ML IV ONE (03:31)
[2020-06-17 03:45] LABS: Basophils # (auto) 0 10 ^3/uL (0-0.2); Basophils % (auto) 0.2 % (0.0-2.0); Eosinophils # (auto) 0 10 ^3/uL (0-0.8); Hematocrit 33.2 % (36.0-46.0); Hemoglobin 10.9 g/dL (12.2-16.2); Lymphocytes # (auto) 0.7 10 ^3/uL (0.4-5.4); Lymphocytes % (auto) 5.5 % (10.0-50.0); Mean Corpuscular Hemoglobin 32.7 pg (28.0-32.0); Mean Corpuscular Hgb Conc. 32.8 g/dL (32.0-36.0); Mean Corpuscular Volume 99.6 fL (80.0-100.0); Monocytes # (auto) 0.7 10 ^3/uL (0-1.3); Monocytes % (auto) 5.7 % (0.0-12.0); Neutrophils # (auto) 10.9 10 ^3/uL (1.6-8.6); Neutrophils % (auto) 88.6 % (37.0-80.0); Platelet Count (auto) 407 10^3/uL (140-450); Red Blood Cells 3.33 10^6/uL (4.0-5.20); Red Cell Distribution Width 16.2 % (11.8-14.3); White Blood Cell 12.3 10^3/uL (4.4-10.8)
[2020-06-17] MEDS ORDERED: MIDAZOLAM DRIP 50 mg/50mL 50 ML IV SCH (03:59)
[2020-06-17] MEDS ORDERED: DOPamine 1600MCG/ML D5W 250 ML IV SCH (03:59)
[2020-06-17 04:03] LABS: BUN/Creatinine Ratio 13.9
[2020-06-17 04:07] LABS: Calcium 6.8 mg/dL (8.5-10.1)
[2020-06-17 04:11] LABS: Potassium 7.3 mmol/L (3.5-5.1)
[2020-06-17] MEDS ORDERED: SODIUM CHL IV SCH (04:30)
[2020-06-17] MEDS ORDERED: SODIUM BICARBONATE 8.4 % INJ 50ML VIAL IV ONE ×3 (04:30→04:32)
[2020-06-17] MEDS ORDERED: SODIUM BICARBONATE IV SCH (04:30)
[2020-06-17] MEDS ORDERED: InsuLIN REG 1unit/0.01ml Soln (100units/ml) ONE (04:35)
[2020-06-17] MEDS ORDERED: SODIUM ZIRCONIUM CYCL 10 GM PAK ONE (04:35)
[2020-06-17] MEDS ORDERED: DEXTROSE 50% SYRINGE 50 ML IV ONE (04:36)
[2020-06-17] MEDS: FUROSEMIDE 40 MG/4 ML VIAL IV SCH (06:00)
[2020-06-17] MEDS: cloNIDine HCL 0.1 MG TAB PO SCH (06:00)
[2020-06-17] MEDS: InsuLIN REG 1unit/0.01ml Soln (100units/ml) SC SCH ×2 (06:20)
[2020-06-17] MEDS: NOREPINEPHRINE 8 MG/250ML KIT 250 ML IV ONE ×2 (06:26→06:33)
[2020-06-17] MEDS ORDERED: NOREPINEPHRINE 8 MG/250ML KIT 250 ML IV SCH (06:57)
[2020-06-17] MEDS ORDERED: LEVOTHYROXINE SODIUM 100 MCG TAB PO SCH (07:00)
[2020-06-17] MEDS ORDERED: SODIUM BICARBONATE 50ML VIAL 150 ML in SOD CHL 0.45% 1,000 ML IV SCH (07:30)
[2020-06-17] MEDS ORDERED: FERROUS SULFATE 325 MG TAB PO SCH (08:00)
[2020-06-17] MEDS ORDERED: ASPirin 81 mg TAB PO SCH (10:00)
[2020-06-17] MEDS ORDERED: PANTOPRAZOLE 40 MG TAB PO SCH (10:00)
[2020-06-17] MEDS ORDERED: METOPROLOL SUCCINATE XL 50 MG TAB PO SCH (10:00)
[2020-06-17] MEDS ORDERED: MORPHINE SULF INJ 2 MG/ML SYRINGE 1ML IV PRN (10:45)
[2020-06-17] MEDS ORDERED: LORazepam 2MG/ML-1ML VIAL IV PRN (10:45)
[2020-06-17] MEDS ORDERED: SODIUM CHL 0.9% 1000 ML BAG XX ONE (12:00)
[2020-06-17] MEDS ORDERED: ATROPINE SULF 1 MG/10ml SYR IV ONE (19:36)
== END 2020-06-17 19:37 | disposition expired | DRG 208 ==
LOC: ER 08:21 → TELE 08:22 → TELE-EAST 15:29 → TELE-CENTR 17:45 → ICU WEST 06-17 02:40
PROVIDERS: ADMIT Hospitalist; ATTEND Internal Medicine
PROC: 0BH17EZ Insertion of Endotracheal Airway into Trachea, Via Natural or Artificial Opening (ICD-10-PCS; principal; 2020-06-17)
PROC: 5A1935Z Respiratory Ventilation, Less than 24 Consecutive Hours (ICD-10-PCS; 2020-06-17)
DX: J96.01 Acute respiratory failure with hypoxia (principal); N18.6 End stage renal disease; E44.0 Moderate protein-calorie malnutrition; E87.1 Hypo-osmolality and hyponatremia; E87.2 Acidosis; I13.2 Hypertensive heart and chronic kidney disease with heart failure and with stage 5 chronic kidney disease, or end stage renal disease; I50.22 Chronic systolic (congestive) heart failure; J84.9 Interstitial pulmonary disease, unspecified; D63.1 Anemia in chronic kidney disease; E03.9 Hypothyroidism, unspecified; E11.22 Type 2 diabetes mellitus with diabetic chronic kidney disease; E11.40 Type 2 diabetes mellitus with diabetic neuropathy, unspecified; E11.65 Type 2 diabetes mellitus with hyperglycemia; E87.5 Hyperkalemia; I25.9 Chronic ischemic heart disease, unspecified; Z79.4 Long term (current) use of insulin; Z79.899 Other long term (current) drug therapy; Z80.0 Family history of malignant neoplasm of digestive organs; Z82.49 Family history of ischemic heart disease and other diseases of the circulatory system; Z83.3 Family history of diabetes mellitus; Z87.11 Personal history of peptic ulcer disease; Z99.2 Dependence on renal dialysis; Z90.49 Acquired absence of other specified parts of digestive tract; E66.9 Obesity, unspecified; Z68.33 Body mass index [BMI] 33.0-33.9, adult; I46.9 Cardiac arrest, cause unspecified; Z20.828 Contact with and (suspected) exposure to other viral communicable diseases
CPT/HCPCS: 36415; 36600; 71045; 80048; 80053; 80061; 80202; 80307; 81001; 82805; 82962; 83036; 84132; 84484; 85025; 87040; 87070; 87081; 87086; 87205; 87426; 93005; 94002; 94003; G0378; J0330; J1815; J2250; J2405; J2543